=== PATIENT | female | born 1965 | race Caucasian/White ===

== ENCOUNTER 2024-10-03 08:08 | Outpatient (OUT) | payer BC, SELFPAY ==
--- NOTE | 2024-10-03 08:12 | MM_ITS ---
Patient Name: KEITH ROY MR#: [id number] : 1965 Exam Date: 10/03/2024 Ordering Doctor: Non-Staff Physician RADIOLOGY REPORT PROCEDURE: MM TOMOSYNTHESIS SCREENING BI COMPARISON: MM TOMOSYNTHESIS SCREENING BI, 06/09/2023. MM TOMOSYNTHESIS SCREENING BI, 06/15/2021. INDICATIONS: Screening Calculator Name NCI Breast Cancer Risk Assessment Tool 5 Year Breast Cancer Risk 2.60% Lifetime Breast Cancer Risk 12.80% Personal Breast Cancer No Personal Ovarian Cancer No Treatments None Family Cancers Mother with breast cancer at age 69. LOCATION: [facility] BREAST COMPOSITION: There are scattered areas of fibroglandular density. FINDINGS: RIGHT BREAST: No significant suspicious finding. LEFT BREAST: No significant suspicious finding. DIAGNOSTIC CATEGORY 1--NEGATIVE. NO CHANGE FROM COMPARISON ASSESSMENT. RECOMMENDATIONS: ROUTINE MAMMOGRAM AND CLINICAL EVALUATION IN 12 MONTHS. PLEASE NOTE: A NORMAL MAMMOGRAM DOES NOT EXCLUDE THE POSSIBILITY OF BREAST CANCER. A CLINICALLY SUSPICIOUS PALPABLE LUMP SHOULD BE BIOPSIED. Dictated by: Abelardo Martinez MD on 10/03/2024 at 15:48 Approved by: Abelardo Martinez MD on 10/03/2024 at 15:52
== END 2024-10-03 08:09 | disposition home or self-care (01) ==
LOC: MAMMO 08:08
PROVIDERS: PCP Nurse Practitioner
DX: Z12.31 Encounter for screening mammogram for malignant neoplasm of breast (principal); Z80.3 Family history of malignant neoplasm of breast
CPT/HCPCS: 77063; 77067

== ENCOUNTER 2025-03-04 11:10 | Outpatient (OUT) | payer BC, SELFPAY ==
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
--- NOTE | 2025-03-04 | XR_ITS ---
[facility] [place] [id number] Patient Name: KEITH ROY MRN: [id number] date: 1965 Sex: F Assigned Patient Location: [facility] Current Patient Location: [facility] Accession/Order Number: [id number] Exam Date: 03/04/2025 11:23 Report Date: 03/04/2025 11:31 At the request of: CHAPINCITO GOLDMAN DO Procedure: XR hand LT min 3V LEFT HAND - 3 views CLINICAL DATA: Pain at the fourth finger for the past 2 months after opening a box and hearing a pop. COMPARISON: None AP, lateral and oblique views were obtained. There is no evidence of fracture or dislocation. There are no significant soft tissue abnormalities. XR/XR hand LT min 3V IMPRESSION: NO ACUTE BONY INJURY. Impression dictated by: Cyndy Liu M.D. 03/04/2025 11:31 AM Dictation Location: [place] [address] Electronically authenticated by: [id number] Y Date: 03/04/2025 11:31
--- OUTSIDE RECORDS SUMMARY | 2025-03-04 11:12 | XMS_ITS | Clinical Summary ---
Author Organization [facility] Address [id number] [address] [place] [address] Care Team Providers Care Welfare Aide Name Role Phone No Pcp, No Pcp Primary Care Provider Unavailabl e Allergies Active Allergy Reactions Criticality Noted Date Comments Sulfa (Sulfonamide Antibiotics) 05/09 Sulfasalazine 03/24/2017 Medications * This document contains information received from the source organization and may not represent a complete record from that organization. losartan (COZAAR) 25 mg tablet Take 25 mg by mouth daily. Active estradiol (ESTRACE) 0.5 mg tablet Take 0.5 mg by mouth daily. Active omeprazole (PriLOSEC) 40 mg capsule Take 40 mg by mouth as needed. Active triamcinolone (KENALOG) 0.1 % paste Apply 1 application to teeth 2 (two) times a day. Active hydroCHLOROthia zide (HYDRODIURIL) 12.5 mg tablet Take 12.5 mg by mouth daily. Active lamoTRIgine (LaMICtal) 25 mg tablet TAKE ONE AND ONE-HALF TABLETS DAILY 135 tablet 1 2 Active Active Problems Problem Noted Date Diagnosed Date Generalized anxiety disorder 08/15/2017 Major depressive disorder, recurrent episode, mo derate 08/15/2017 Posttraumatic stress disorder 08/15/2017 Social History Tobacco Use Types Packs/Day Years Used Date Smoking Tobacco: Never Assessed Childcare Answer Date Recorded Childcare Unknown 01/05/2019 Employment Answer Date Recorded Employment Unknown 01/05/2019 Purpose - Life Answer Date Recorded Purpose and direction in life Unknown Comments Unknown Sex and Gender Information Value Date Recorded Sex Assigned at Not on file Legal Sex Female 12:11 PM EDT Gender Identity Not on file Sexual Orientation Not on file Last Filed Vital Signs Vital Sign Reading Time Taken Comments Blood Pressure 122/88 07/08/2015 1:31 PM EST Pulse - - Temperature 37.1 C (98.8 F) 06/02/2016 1:41 PM EDT Respiratory Rate - - Oxygen Saturation - - Inhaled Oxygen Concentration - - Weight 66.1 kg (145 lb 12.8 oz) 06/02/2016 1:41 PM EDT Height 165.1 cm (5' 5 ) 06/02/2016 1:41 PM EDT Body Mass Index 24.26 06/02/2016 1:41 PM EDT Plan of Treatment Health Maintenance Due Date Last Done Comments Depression Screening 1976 Tobacco Screening 1976 Adult BMI Screening 1982 DTaP,Tdap and Td Vaccines (1 - Tdap) 1983 Zoster (Shingles) Vaccine (1 of 2) 2014 Pap Smear 08/30/2019 08/30/2016, 08/30/2016 Influenza Vaccine 04/08/2025 Medical Devices Not on file Procedures Procedure Name Priority Date/Time Associated Diagnosis Comments PAP SMEAR Routine 08/30/2016 3:23 PM EST from Last 3 Months or Most Recently Relevant to Health Maintenance Results * Pap Smear (08/30/2016 3:23 PM EST) 08/30/2016 3:23 PM EST 08/31/2016 3:23 PM EST Narrative COPATH - 09/04/2016 3:02 PM EST [facility] [address] [place] [address] Gynecologic Cytology Consultation Patient Name: CHERELLE TUTTLE : 1965 (Age: 51) Gender: F Taken: 08/30/2016 Reported: 09/04/2016 Physician(s): Ayse Camacho CNP [phone]) Copy To: Med. Rec. #: [id number] Acct: # [id number] Final Cytologic Interpretation Cervical-Endocervical ThinPrep: Satisfactory for evaluation. A transformation zone component was not noted. NEGATIVE FOR INTRAEPITHELIAL LESION OR MALIGNANCY. Comment: This specimen has been sent for HPV testing. The results are in a separate report. lrd/09/04/2016 Electronically Signed Out By ANTONELLA Espinoza, (ASCP) Date of Last Menstrual Period: (None Given) Other Clinical Conditions: Screening/Routine V72.31 Routine c69588 Source of Specimen Cervical-Endocervical ThinPrep Thin Prep Pap (SCALE MODEL MAKER) Fee Code(s): G0145 The Pap test is a screening test with an inherent, but low, probability of error. The Pap test is primarily effective for the diagnosis and prevention of squamous cell carcinoma. Regular screening is critical for prevention. ThinPrep liquid-based slides, which meet the Sheet Metal Foreman criteria for automated screening, have been screened by the [email or web address] Imaging System (as of 04/24/07) along with an additional manual rescreening by a darkroom technician and, if indicated, by a pathologist.Ayse Camacho CNP 08/31/2016 Guerline Camacho HOLISTIC PULSER-SUPERVISOR PROPELLANT CHARGE LOADING PATHOLOGY/CYTOLOGY ORDERABLES Final Result COPATH from Last 3 Months or Most Recently Relevant to Health Maintenance Insurance [employer] Care Teams Welfare Aide Relationship Specialty Start Date End Date No Pcp, [place] [address] PCP - General Family Medicine 01/29/19
--- OUTSIDE RECORDS SUMMARY | 2025-03-04 11:12 | XMS_ITS | Clinical Summary ---
Author Organization [facility] Address [address] [place] [address] Care Team Providers Care Senior Manager Quality Assurance Name Role Phone Unavailable Primary Care Provider Unavailabl e Social History Tobacco Use Types Packs/Day Years Used Date Smoking Tobacco: Never Assessed Comments Unknown Sex and Gender Information Value Date Recorded Sex Assigned at Not on file Legal Sex Female 7:40 PM EST Gender Identity Not on file Sexual Orientation Not on file Plan of Treatment Not on file Insurance [facility] PPO
--- OUTSIDE RECORDS SUMMARY | 2025-03-04 11:12 | XMS_ITS | Encounter Summary ---
Author Organization [facility] Address [address] [facility] [place] [address] Care Team Providers Care Boot Lace Cutter Machine Name Role Phone Manuela Gill NP Unavailable [phone] Praful Sands MD Primary Care Provider [phone] Encounter Details Date Type Department Care Team (Late Contact Info) Description 04/25/2024 Orders Only [facility] [address] [place] [address] Manuela Gill NP [address] [place] [address] Social History Tobacco Use Types Packs/Day Years Used Date Smoking Tobacco: Never Smokeless Tobacco: Never Alcohol Use Standard Drinks/Week Comments Never 0 (1 standard drink = 0.6 oz pur e alcohol) caffeine more than 4 cups Comments Unknown Sex and Gender Information Value Date Recorded Sex Assigned at Not on file Legal Sex Female 9:50 PM EDT Gender Identity Not on file Sexual Orientation Not on file documented as of this encounter Plan of Treatment Upcoming Encounters Date Type Department Care Team (Late st Contact Info) Description 03/18/2025 9:30 AM EDT Office Visit [facility] [address] [place] [address] Manuela Gill NP [address] [place] [phone] documented as of this encounter Procedures Procedure Name Priority Date/Time Associated Diagnosis Comments MISCELLANEOUS LAB TEST Routine 04/24/2024 11:04 AM EDT documented in this encounter Results * - Miscellaneous Test (04/24/2024 11:04 AM EDT) Manuela Gill NP LAB BLOOD ORDERABLES Final Resu lt documented in this encounter Visit Diagnoses Not on filedocumented in this encounter Care Teams Boot Lace Cutter Machine Relationship Specialty Start Date End Date Praful Sands MD [address] [place] [phone] PCP - General Family Medicine 01/12/24 Manuela Gill NP [address] [place] [phone] Nurse Practitioner Nurse Practitioner 03/09/23 documented as of this encounter
--- OUTSIDE RECORDS SUMMARY | 2025-03-04 11:12 | XMS_ITS | Clinical Summary ---
Author Organization [facility] Address [address], [address] [place] [address] Care Team Providers Care Healthcare Specialist Name Role Phone Unavailable Primary Care Provider Unavailabl e Allergies Active Allergy Reactions Criticality Noted Date Comments Sulfa Antibiotics 03/24/2017 Medications LamoTRIgine (LAMICTAL PO) Take 37.5 mg by mouth daily Active hydrochlorothiaz trisha (HYDRODIURIL) 25 MG tablet Take 25 mg by mouth daily Active losartan (COZAAR) 25 MG tablet Take 25 mg by mouth daily Active estradiol (ESTRACE) 1 MG tablet Take 1 mg by mouth daily Active Cholecalciferol (VITAMIN D PO) Take by mouth Active ibuprofen (ADVIL;MOTRIN) 800 MG tablet Take 1 tablet by mouth every 8 hours as needed for Pain 21 tablet 03/24/2017 Active Social History Tobacco Use Types Packs/Day Years Used Date Smoking Tobacco: Never Comments No Sex and Gender Information Value Date Recorded Sex Assigned at Not on file Legal Sex Female 1:51 PM EDT Gender Identity Not on file Sexual Orientation Not on file Last Filed Vital Signs Vital Sign Reading Time Taken Comments Blood Pressure 148/90 03/24/2017 2:16 PM EDT Pulse 116 03/24/2017 1:54 PM EDT Temperature 37.4 C (99.4 F) 03/24/2017 1:54 PM EDT Respiratory Rate 20 03/24/2017 1:54 PM EDT Oxygen Saturation 99% 03/24/2017 2:16 PM EDT Inhaled Oxygen Concentration - - Weight - - Height - - Body Mass Index - - Plan of Treatment Not on file Insurance [employer] on file
--- OUTSIDE RECORDS SUMMARY | 2025-03-04 11:13 | XMS_ITS | Encounter Summary ---
Author Organization [facility] Address [address] [facility] [place] [address] Care Team Providers Care Feed Handler Name Role Phone Manuela Gill NP Unavailable [phone] Praful Sands MD Primary Care Provider [phone] Encounter Details Date Type Department Care Team (Late Contact Info) Description 08/21/2024 Orders Only [facility] [address] [place] [phone] Renetta Nance DO [address] [facility] [place] [address] Social History Tobacco Use Types Packs/Day Years [...] 03/18/2025 9:30 AM EDT [facility] [address] [place] [phone] Manuela Gill NP [address] [place] [phone] documented as of this encounter Procedures Procedure Name Priority Date/Time Associated Diagnosis Comments COLONOSCOPY Routine 08/21/2024 1:11 PM EST documented in this encounter Results * Colonoscopy (08/21/2024 1:11 PM EST) Anatomical Region Laterality Modality Endoscopy us Renetta Nance DO ENDOSCOPY PROCEDURE ORDERABLES F inal Result documented in this encounter Visit Diagnoses Not on filedocumented in this encounter Care Teams Feed Handler Relationship Specialty Start Date End Date Praful Sands MD [address] [place] [phone] PCP - General Family Medicine 01/12/24 Manuela Gill NP [address] [place] [address] Nurse Practitioner Nurse Practitioner 03/09/23 documented as of this encounter
--- OUTSIDE RECORDS SUMMARY | 2025-03-04 11:13 | XMS_ITS | Clinical Summary ---
Author Organization [facility] Address [address] [facility] [place] [address] Care Team Providers Care Dive Master Name Role Phone Manuela Gill NP Unavailable [phone] Praful Sands MD Primary Care Provider [phone] Allergies Active Allergy Reactions Criticality Noted Date Comments Amlodipine 08/29/2023 Other Reaction(s): Unknown Escitalopram 08/29/2023 Other Reaction(s): Unknown Fluoxetine Unknown 01/12/2024 Fluticasone-Salmeterol 08/29/2023 Other Reaction(s): Unknown Food 06/08/2008 Gabapentin Dizziness 06/20/2024 Lisinopril 08/29/2023 Other Reaction(s): Unknown Naproxen 08/29/2023 Other Reaction(s): Unknown Paroxetine 08/29/2023 Other Reaction(s): Unknown Red Dye #40 (Allura Red) Other 01/12/2024 Sulfa Antibiotics GI intolerance 07/19/2007 Other Reaction(s): nausea, Onset Date: 2007-08-15;, Unknown Sulfasalazine 03/24/2017 Wound Dressing Adhesive Other 01/12/2024 Medications estradiol-norethi ndrone (ActivElla) 1-0.5 MG tablet Take 1 tablet by mouth Daily Active cholecalciferol (Vitamin D-3) 25 MCG (1000 UT) capsule Take 25 mcg by mouth Daily Active aspirin 81 MG EC tablet Take 81 mg by mouth Daily Active estradiol (Estrace) 0.1 MG/GM vaginal cream Apply a pea sized amount daily to external areas discussed 4 Active hydroCHLOROthiazi de (HYDRODiuril) 25 MG tabletIndications :Primary hypertension Take 1 tablet (25 mg) by mouth Daily 90 tablet 0503/11/20 25 Active lamoTRIgine (LaMICtal) 25 MG tabletIndications :Anxiety and depression Take 1 tablet (25 mg) by mouth in the morning and 1 tablet (25 mg) before bedtime. 180 tablet 03/11/20 25 Active omeprazole (PriLOSEC) [address] capsuleIndication s:Gastroesophagea l reflux disease without esophagitis Take 1 capsule (40 mg) by mouth in the morning. Take before meals. Do not crush or chew. 90 capsule 5 03/11/20 25 Active Active Problems Problem Noted Date Diagnosed Date Gastroesophageal reflux disease without esophagi tis 06/20/2024 Overview (08/21/2024): EGD on 08/21/24: normal Assessment & Plan (06/20/2024 10:56 AM EST): Recommendations: freq small meals, nothing to eat or drink at least 2 hours prior to bed, limit caffeine, alcohol, as well as spicy foods Meds to limit or avoid if possible: NSAIDS Elevate HOB if possible Will increase her dose of Omeprazole from 20mg daily to 40mg daily Fu in 6 weeks for recheck Will also refer to gastro Hiatal hernia 06/20/2024 Assessment & Plan (06/20/2024 10:57 AM EST): Refer to GI and increase PPI Colon cancer screening 06/20/2024 Assessment & Plan (06/20/2024 10:58 AM EST): Cannot get done until next year, we will include this on the order for GI, as it can be set up when pt determines it is best Chronic rhinitis 01/12/2024 Menopausal and female climacteric states 024 Assessment & Plan (06/20/2024 10:59 AM EST): Continue with Production Posting Clerk Raynaud's phenomenon without gangrene 01/12/2024 Sensorineural hearing loss, bilateral 01/12/2024 Tinnitus 01/12/2024 Arthralgia of left temporomandibular joint 01/11 Assessment & Plan (01/12/2024 2:25 PM EDT): Pt will self referr to [facility] Overweight (BMI 25.0-29.9) 01/12/2024 Anxiety and depression 07/12/2023 Assessment & Plan (06/20/2024 10:59 AM EST): No changes in meds Assessment & Plan (01/12/2024 2:24 PM EDT): No changes in meds Recommend Abelardo Marquez counselor Also to help with her household personal assistant, stop by local gym to see if they can help find her one Primary hypertension 07/12/2023 Assessment & Plan (06/20/2024 10:55 AM EST): No dose changes Will continue to monitor UTD on her labs as well Refills provided Assessment & Plan (01/12/2024 2:24 PM EDT): Stable Check labs Major depressive disorder, recurrent episode, mo derate 08/15/2017 Encounters Date Type Department Care Team Description 12/11/2024 Refill [facility] [address] [place] [address] Manuela Gill NP Primary hypertension ; Anxiety and depression ; Gastroesophageal reflux disease without esophagitis 12/10/2024 Telephone [facility] [address] [place] [address] Manuela Gill NP from Last 3 Months Family History Medical History Relation Name Comments Stroke Mother Relation Name Status Comments Father Alive Mother Social History Tobacco Use Types Packs/Day Years Used Date Smoking Tobacco: Never Smokeless Tobacco: Never Tobacco Cessation:Counseling Given: Not Answered Alcohol Use Standard Drinks/Week Comments Never 0 [...] Sign Reading Time Taken Comments Blood Pressure 138/88 06/20/2024 9:00 AM EST Pulse 102 06/20/2024 9:00 AM EST Temperature 37.1 C (98.7 F) 06/20/2024 9:00 AM EST Respiratory Rate 18 06/20/2024 9:00 AM EST Oxygen Saturation 100% 06/20/2024 9:00 AM EST Inhaled Oxygen Concentration - - Weight 72.7 kg (160 lb 3.2 oz) 06/20/2024 9:00 A M EST Height 165.1 cm (5' 5 ) 06/20/2024 9:00 AM EST Body Mass Index 26.66 06/20/2024 9:00 AM EST Plan of Treatment Upcoming Encounters Date Type Department Care Team (Late st Contact Info) Description 03/18/2025 9:30 AM EDT Office Visit [facility] [address] [place] [address] Manuela Gill, FATIMAH [address] [place] [address] Health Maintenance Due Date Last Done Comments CT Colonography 1965 FIT-DNA 1965 FIT 1965 FOBT 1965 Sigmoidoscopy 1965 HPV/Cotest 1994 Influenza Vaccine (#1) 2025 Mammogram 10/03/2025 10/03/2024, 10/03/2024 Cervical Cancer Screening 05/21/2027 Pap Smear 05/21/2027 05/21/2024 Colonoscopy 08/21/2029 08/21/2024 Colorectal Cancer Screening 08/21/2029 Procedures Procedure Name Priority Date/Time Associated Diagnosis Comments BI MAMMOGRAM SCREENING TOMOSYNTHESIS BILATERAL Routine 10/03/2024 4:04 PM EST COLONOSCOPY Routine 08/21/2024 1:11 PM EST from Last 3 Months or Most Recently Relevant to Health Maintenance Results * Bilateral screening mammogram with tomosynthesis (10/03/2024 4:04 PM EST) Anatomical Region Laterality Modality Breast Bilateral Mammography us Manuela Gill NP IMG BI PROCEDURES Final Result * Colonoscopy (08/21/2024 1:11 PM EST) Anatomical Region Laterality Modality Endoscopy Renetta Lee Ann DO ENDOSCOPY PROCEDURE ORDERABLES F inal Result from Last 3 Months or Most Recently Relevant to Health Maintenance Insurance [employer] Care Teams Dive Master Relationship Specialty Start Date End Date Praful Sands MD [address] [place] [phone] PCP - General Family Medicine 01/12/24 Manuela Gill NP [address] [place] [phone] Nurse Practitioner Nurse Practitioner 03/09/23
--- OUTSIDE RECORDS SUMMARY | 2025-03-04 11:13 | XMS_ITS | Encounter Summary ---
Author Organization [facility] Address [address] [place] [address] Care Team Providers Care Recreation Establishment Manager Name Role Phone Manuela Gill NP Unavailable [phone] Praful Sands MD Primary Care Provider [phone] Encounter Details Date Type Department Care Team (Late Contact Info) Description 10/03/2024 Orders Only [facility] [address] [place] [address] Manuela Gill NP [address] [place] [address] Social History Tobacco Use Types Packs/Day Years [...] 03/18/2025 9:30 AM EDT Office Visit [facility] [address] [place] [address] Manuela Gill NP [address] [place] [phone] documented as of this encounter Procedures Procedure Name Priority Date/Time Associated Diagnosis Comments BI MAMMOGRAM SCREENING TOMOSYNTHESIS BILATERAL Routine 10/03/2024 4:04 PM EST documented in this encounter Results * Bilateral screening mammogram with tomosynthesis (10/03/2024 4:04 PM EST) Anatomical Region Laterality Modality Breast Bilateral Mammography Manuela Gill NP IMG BI PROCEDURES Final Result documented in this encounter Visit Diagnoses Not on filedocumented in this encounter Care Teams Recreation Establishment Manager Relationship Specialty Start Date End Date Praful Sands MD [address] [place] [address] PCP - General Family Medicine 01/12/24 Manuela Gill NP [address] [place] [address] Nurse Practitioner Nurse Practitioner 03/09/23 documented as of this encounter
== END 2025-03-04 11:11 | disposition home or self-care (01) ==
LOC: RAD 11:11
PROVIDERS: PCP Nurse Practitioner; Visit Provider Orthopaedic Surgery Orthopaedic Trauma
DX: M79.642 Pain in left hand (principal)
CPT/HCPCS: 73130

== ENCOUNTER 2025-06-29 09:13 | Outpatient (OUT) | payer BC, SELFPAY ==
--- OUTSIDE RECORDS SUMMARY | 2024-05-24 19:40 | XMS_ITS | Continuity of Care Document ---
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 Mammogram Screening. Due on due Goal Mammogram. Due on due Goal Glucose. Due on due Goal Hepatitis C screening. Due o n due Goal Sigmoidoscopy. Due on due Goal Zoster vaccine (). Due on due Goal Zoster vaccine. Due on due Goal CT-Colonography. Due on due Goal SCREENINGMAMMOGRAPHYDIGITAL. Due on due Goal Depression screening. Due on due Goal TD Vaccine. Due on due Goal creatinine. Due on due Goal WASTEWATER TREATMENT SUPERVISOR/Breast exam. Due on due Goal Influenza vaccine. Due on Oc due Goal H&P. Due on due Goal Pap/HPV testing. Due on due Goal Pap liquid based for cytolog y. Due on due Goal FIT. Due on due Goal Breast exam. Due on due Goal BMP. Due on due Goal HPV. Due on due Goal Colonoscopy. Due on due Goal Mammogram. Due on due Goal Colonoscopy. Due on due Goal FIT-DNA. Due on due Goal Glucose. Due on due Goal TD Vaccine. Due on due Goal SCREENINGMAMMOGRAPHYDIGITAL. Due on due Goal Pap liquid based for cytolog y. Due on due Goal URINALYSIS NONAUTO W/O SCOPE . Due on due Goal Pap/HPV testing. Due on due Goal HPV. Due on due Goal Unhealthy drug use screening . Due on due Goal Zoster vaccine (). Due on due Goal Sigmoidoscopy. Due on due Goal Digital Mammogram Screening. Due on due Goal H&P. Due on due Goal Cytology report of Cervical and vaginal smear or scraping Cyto stain. Due on due Goal WASTEWATER TREATMENT SUPERVISOR/Breast exam. Due on due Goal Hepatitis C screening. Due o n due Goal FIT. Due on due Goal Breast exam. Due on due Goal FOBT. Due on due Goal Zoster vaccine. 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 Due on due Goal IFOB. Due on due Goal CT-Colonography. Due on due Goal Influenza vaccine. Due on Oc due Goal Depression screening. Due on due Goal BMP. Due on due Goal creatinine. Due on due Goal Influenza vaccine. Due on Oc due Goal WASTEWATER TREATMENT SUPERVISOR/Breast exam. Due on due Goal Digital Mammogram Screening. Due on due Goal Depression screening. 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 Due on due Goal Mammogram. Due on due Goal Colonoscopy. Due on due Goal Pap liquid based for cytolog y. Due on due Goal FOBT. Due on due Goal CT-Colonography. Due on due Goal FIT-DNA. Due on due Goal Breast exam. Due on due Goal IFOB. Due on due Goal Glucose. Due on due Goal Dexa Scan. Due on due Goal H&P. Due on due Goal TD Vaccine. Due on due Goal Pap/HPV testing. Due on due Goal creatinine. Due on due Goal BMP. Due on due Goal Lipid panel. Due on due Goal HPV. Due on due Goal FIT. Due on due Goal Cytology report of Cervical and vaginal smear or scraping Cyto stain. Due on due Goal URINALYSIS NONAUTO W/O SCOPE . Due on due Goal SCREENINGMAMMOGRAPHYDIGITAL. Due on due Goal Zoster vaccine (1st). Due on due Goal Dexa Scan. Due on due Goal URINALYSIS NONAUTO W/O SCOPE . Due on due Goal creatinine. Due on due Goal BMP. Due on due Goal Lipid panel. Due on due Goal H&P. Due on due Goal Cytology report of Cervical and vaginal smear or scraping Cyto stain. Due on due Goal SCREENINGMAMMOGRAPHYDIGITAL. Due on due Goal FIT. Due on due Goal Pap liquid based for cytolog y. Due on due Goal FOBT. Due on due Goal HPV. Due on due Goal Glucose. Due on due Goal Depression screening. Due on due Goal Pap/HPV testing. 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 Due on due Goal Influenza vaccine. Due on due Goal Colonoscopy. Due on due Goal Breast exam. Due on due Goal TD Vaccine. Due on due Goal CT-Colonography. Due on due Goal WASTEWATER TREATMENT SUPERVISOR/Breast exam. Due on due Goal IFOB. Due on due Goal FIT-DNA. Due on due Goal Mammogram. Due on 3 due Goal Digital Mammogram Screening. Due on due Goal Zoster vaccine (). Due on due Goal Digital Mammogram Screening. Due on due Goal Breast exam. 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 Due on due Goal Depression screening. Due on due Goal Pap liquid based for cytolog y. Due on due Goal FIT-DNA. Due on due Goal FOBT. Due on due Goal CT-Colonography. Due on due Goal Pap/HPV testing. Due on due Goal Cytology report of Cervical and vaginal smear or scraping Cyto stain. Due on due Goal Zoster vaccine (). Due on due Goal TD Vaccine. Due on due Goal Glucose. Due on due Goal URINALYSIS NONAUTO W/O SCOPE . Due on due Goal WASTEWATER TREATMENT SUPERVISOR/Breast exam. Due on due Goal BMP. Due on due Goal creatinine. Due on 20 due Goal Lipid panel. Due on 020 due Goal Mammogram. Due on 3 due Goal Colonoscopy. Due on 021 due Goal Influenza vaccine. Due on due Goal Dexa Scan. Due on due Goal H&P. Due on due Goal HPV. Due on due Goal SCREENINGMAMMOGRAPHYDIGITAL. Due on due Goal IFOB. Due on due Goal FIT. Due on due Goal FIT-DNA. Due on due Goal IFOB. Due on due Goal H&P. Due on due Goal Depression screening. Due on due Goal Influenza vaccine. Due on Oc due Goal Pap liquid based for cytolog y. Due on due Goal FIT. 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 Due on due Goal Dexa Scan. Due on 0 due Goal Digital Mammogram Screening. Due on due Goal URINALYSIS NONAUTO W/O SCOPE . Due on due Goal creatinine. Due on due Goal BMP. Due on due Goal Lipid panel. Due on due Goal Cytology report of Cervical and vaginal smear or scraping Cyto stain. Due on due Goal TD Vaccine. Due on due Goal Pap/HPV testing. Due on due Goal Zoster vaccine (1st). Due on due Goal WASTEWATER TREATMENT SUPERVISOR/Breast exam. Due on due Goal FOBT. Due on due Goal HPV. Due on due Goal Glucose. Due on due Goal Mammogram. Due on 3 due Goal Breast exam. Due on due Goal CT-Colonography. Due on due Goal Colonoscopy. Due on due Goal SCREENINGMAMMOGRAPHYDIGITAL. 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 Due on due Goal Digital Mammogram Screening. Due on due Goal H&P. Due on due Goal SCREENINGMAMMOGRAPHYDIGITAL. Due on due Goal HPV. Due on due Goal FIT. Due on due Goal WASTEWATER TREATMENT SUPERVISOR/Breast exam. Due on due Goal FIT-DNA. Due on due Goal CT-Colonography. Due on due Goal creatinine. Due on due Goal BMP. Due on due Goal IFOB. Due on due Goal Colonoscopy. Due on due Goal Dexa Scan. Due on 0 due Goal Pap liquid based for cytolog y. Due on due Goal Zoster vaccine (). Due on due Goal Cytology report of Cervical and vaginal smear or scraping Cyto stain. Due on due Goal TD Vaccine. Due on due Goal Pap/HPV testing. Due on due Goal FOBT. Due on due Goal Lipid panel. Due on due Goal Depression screening. Due on due Goal Mammogram. Due on 3 due Goal Influenza vaccine. Due on due Goal Glucose. Due on due Goal Breast exam. Due on due Goal URINALYSIS NONAUTO W/O SCOPE . Due on due Goal Influenza vaccine. Due on due Goal WASTEWATER TREATMENT SUPERVISOR/Breast exam. Due on due Goal Dexa Scan. Due on 0 due Goal Glucose. Due on due Goal Pap/HPV testing. Due on due Goal SCREENINGMAMMOGRAPHYDIGITAL. Due on due Goal FOBT. Due on due Goal H&P. Due on due Goal Colonoscopy. Due on due Goal HPV. Due on due Goal creatinine. Due on 20 due Goal BMP. Due on due Goal Lipid panel. Due on 020 due Goal Mammogram. Due on 3 due Goal URINALYSIS NONAUTO W/O SCOPE . Due on due Goal TD Vaccine. Due on 20 due Goal Breast exam. Due on due Goal Digital Mammogram Screening. 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 Due on due Goal Depression screening. Due on due Goal Pap liquid based for cytolog y. Due on due Goal Zoster vaccine (). Due on due Goal IFOB. Due on due Goal Cytology report of Cervical and vaginal smear or scraping Cyto stain. Due on due Goal CT-Colonography. Due on due Goal FIT. Due on due Goal FIT-DNA. Due on due Goal Zoster vaccine. Due on due Goal Depression screening. Due on due Goal TD Vaccine. Due on 19 due Goal URINALYSIS NONAUTO W/O SCOPE . Due on due Goal Colonoscopy. Due on 019 due Goal WASTEWATER TREATMENT SUPERVISOR exam. Due on due Goal Digital Mammogram Screening. Due on due Goal H&P. Due on due Goal Glucose. Due on due Goal FOBT. Due on due Goal Cytology report of Cervical and vaginal smear or scraping Cyto stain. Due on due Goal Influenza vaccine. Due on due Goal WASTEWATER TREATMENT SUPERVISOR/Breast exam. Due on due Goal SCREENINGMAMMOGRAPHYDIGITAL. Due on due Goal Pap liquid based for cytolog y. Due on due Goal Mammogram. Due on 3 due Goal Pap/HPV testing. Due on due Goal IFOB. Due on due Goal Breast exam. Due on 019 due Goal Zoster vaccine (). Due on due Goal creatinine. Due on 20 due Goal Lipid panel. Due on 020 due Goal Pap liquid based for cytolog y. Due on due Goal Influenza vaccine. Due on due Goal TD Vaccine. Due on 19 due Goal Zoster vaccine. 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 Due on due Goal Digital Mammogram Screening. Due on due Goal creatinine. Due on 16 due Goal Eye exam. Due on due Goal Echocardiogram. Due on due Goal Diabetes screening. Due on due Goal URINALYSIS NONAUTO W/O SCOPE . Due on due Goal Glucose. Due on due Goal Depression screening. Due on due Goal Cytology report of Cervical and vaginal smear or scraping Cyto stain. Due on due Goal IFOB. Due on due Goal FOBT. Due on due Goal Pap/HPV testing. Due on due Goal Dexa Scan. Due on 6 due Goal SCREENINGMAMMOGRAPHYDIGITAL. Due on due Goal Colonoscopy. Due on due Goal H&P. Due on due Goal Breast exam. Due on due Goal Mammogram. Due on 1 due Goal WASTEWATER TREATMENT SUPERVISOR/Breast exam. Due on due Goal H&P. Due on due Goal Digital Mammogram Screening. Due on due Goal SCREENINGMAMMOGRAPHYDIGITAL. Due on due Goal Colonoscopy. Due on due Goal Mammogram. Due on 1 due Goal Echocardiogram. Due on due Goal Diabetes screening. Due on due Goal WASTEWATER TREATMENT SUPERVISOR/Breast exam. Due on due Goal URINALYSIS NONAUTO W/O SCOPE . Due on due Goal Depression screening. Due on due Goal Pap liquid based for cytolog y. Due on due Goal Cytology report of Cervical and vaginal smear or scraping Cyto stain. Due on due Goal Dexa Scan. Due on 6 due Goal creatinine. Due on 16 due Goal Eye exam. Due on due Goal IFOB. Due on due Goal Pap/HPV testing. Due on due Goal FOBT. Due on due Goal Glucose. Due on due Goal Influenza vaccine. Due on due Goal Zoster vaccine. Due on due Goal TD Vaccine. Due on 19 due Goal WASTEWATER TREATMENT SUPERVISOR exam. Due on due Goal Breast exam. Due on 019 due Goal Zoster vaccine. Due on due Goal Influenza vaccine. Due on due Goal Glucose. Due on due Goal FOBT. Due on due Goal Pap/HPV testing. Due on due Goal IFOB. Due on due Goal Cytology report of Cervical and vaginal smear or scraping Cyto stain. Due on due Goal Pap liquid based for cytolog y. Due on due Goal URINALYSIS NONAUTO W/O SCOPE . Due on due Goal Depression screening. Due on due Goal Diabetes screening. Due on due Goal Dexa Scan. Due on 6 due Goal Mammogram. Due on 3 due Goal Colonoscopy. Due on 018 due Goal SCREENINGMAMMOGRAPHYDIGITAL. Due on due Goal Digital Mammogram Screening. Due on due Goal H&P. Due on due Goal WASTEWATER TREATMENT SUPERVISOR/Breast exam. Due on due Goal Breast exam. Due on 018 due Goal WASTEWATER TREATMENT SUPERVISOR exam. Due on due Goal TD Vaccine. Due on 18 due Goal Echocardiogram. Due on due Goal Eye exam. Due on due Goal creatinine. Due on 16 due Goal Pap liquid based for cytolog y. Due on due Goal URINALYSIS NONAUTO W/O SCOPE . Due on due Goal Colonoscopy. Due on due Goal Breast exam. Due on 017 due Goal Glucose. Due on due Goal TD Vaccine. Due on 17 due Goal Zoster vaccine. Due on due Goal FOBT. Due on due Goal IFOB. Due on due Goal Influenza vaccine. Due on due Goal H&P. Due on due Goal Pap/HPV testing. Due on due Goal Mammogram. Due on 2 due Goal Depression screening. 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 Due on due Goal WASTEWATER TREATMENT SUPERVISOR/Breast exam. Due on due Goal Digital Mammogram Screening. Due on due Goal SCREENINGMAMMOGRAPHYDIGITAL. Due on due Goal Echocardiogram. Due on due Goal Electrolyte panel. Due on due Goal creatinine. Due on 16 due Goal Eye exam. Due on due Goal Diabetes screening. Due on due Goal Cytology report of Cervical and vaginal smear or scraping Cyto stain. 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 Due on due Goal TD Vaccine. Due on 17 due Goal WASTEWATER TREATMENT SUPERVISOR/Breast exam. Due on due Goal FOBT. Due on due Goal Glucose. Due on due Goal Depression screening. Due on due Goal Breast exam. Due on due Goal Pap/HPV testing. Due on due Goal Colonoscopy. Due on due Goal H&P. Due on due Goal URINALYSIS NONAUTO W/O SCOPE . Due on due Goal Pap liquid based for cytolog y. Due on due Goal SCREENINGMAMMOGRAPHYDIGITAL. Due on due Goal Eye exam. Due on due Goal creatinine. Due on 16 due Goal Electrolyte panel. Due on due Goal IFOB. Due on due Goal Influenza vaccine. Due on due Goal Digital Mammogram Screening. Due on due Goal Mammogram. Due on 2 due Goal Zoster vaccine. Due on due Goal Echocardiogram. Due on due Goal Diabetes screening. Due on due Goal Pap liquid based for cytolog y. Due on due Goal TD Vaccine. Due on 16 due Goal H&P. Due on due Goal WASTEWATER TREATMENT SUPERVISOR/Breast exam. Due on due Goal IFOB. Due on due Goal Depression screening. Due on due Goal URINALYSIS NONAUTO W/O SCOPE . Due on due Goal Breast exam. Due on 016 due Goal FOBT. 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 Due on due Goal Influenza vaccine. Due on due Goal OARRS. Due on du e Goal Dexa Scan. Due on 6 due Goal Zoster vaccine. Due on due Goal Eye exam. Due on due Goal Echocardiogram. Due on due Goal Colonoscopy. Due on 016 due Goal Glucose. Due on due Goal Mammogram. Due on 2 due Goal creatinine. Due on 16 due Goal Electrolyte panel. Due on due Goal Diabetes screening. Due on A due Goal WASTEWATER TREATMENT SUPERVISOR/Breast exam. Due on due Goal IFOB. 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 Due on due Goal OARRS. Due on du e Goal H&P. Due on due Goal URINALYSIS NONAUTO W/O SCOPE . Due on due Goal Dexa Scan. Due on 5 due Goal Breast exam. Due on 015 due Goal Depression screening. Due on due Goal Mammogram. Due on 2 due Goal Influenza vaccine. Due on Oc due Goal TD Vaccine. Due on 15 due Goal Pap liquid based for cytolog y. Due on due Goal FOBT. Due on due Goal Echocardiogram. Due on due Goal Eye exam. Due on due Goal Electrolyte panel. Due on due Goal Diabetes screening. Due on due Goal Zoster vaccine. Due on due Goal Colonoscopy. Due on due Goal Dexa Scan. Due on 5 due Goal URINALYSIS NONAUTO W/O SCOPE . Due on due Goal Depression screening. Due on due Goal OARRS. Due on du e Goal Pap liquid based for cytolog y. Due on due Goal Influenza vaccine. Due on due Goal Breast exam. Due on due Goal TD Vaccine. Due on 15 due Goal H&P. Due on due Goal Tdap. Due on due Goal PAP. Due on due Goal WASTEWATER TREATMENT SUPERVISOR/Breast exam. Due on due Goal Colonoscopy. Due on 015 due Goal Zoster vaccine. Due on due Goal IFOB. 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 Due on due Goal Eye exam. Due on due Goal Mammogram. Due on 2 due Goal Electrolyte panel. Due on due Goal Echocardiogram. Due on due Goal Diabetes screening. 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 Due on due Goal TD Vaccine. Due on 14 due Goal Breast exam. Due on 014 due Goal Mammogram. Due on 2 due Goal PAP. Due on due Goal H&P. Due on due Goal Eye exam. Due on due Goal Diabetes screening. Due on due Goal Colonoscopy. Due on 014 due Goal Depression screening. Due on due Goal DEXA Scan. Due on 4 due Goal Dexa Scan. Due on 4 due Goal WASTEWATER TREATMENT SUPERVISOR/Breast exam. Due on due Goal IFOB. Due on due Goal Influenza vaccine. Due on due Goal OARRS. Due on du e Goal Pap liquid based for cytolog y. Due on due Goal Tdap. Due on due Goal Zoster vaccine. Due on due Goal Electrolyte panel. Due on due Goal Urinalysis due Goal Echocardiogram. Due on due Goal TD Vaccine. Due on 14 due Goal WASTEWATER TREATMENT SUPERVISOR exam. Due on due Goal H&P. Due on due Goal Breast exam. Due on 014 due Goal Urinalysis . Due on 014 due Goal Electrolyte panel. Due on due Goal creatinine. Due on 14 due Goal Echocardiogram. Due on due Goal PAP. Due on due Goal H&P. Due on due Goal Breast exam. Due on 014 due Goal PAP. 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 Due on due Goal TD Vaccine. Due on 14 due Goal ECG due Goal Echocardiogram. Due on due Goal creatinine. Due on 14 due Goal Electrolyte panel. Due on due Goal Urinalysis . Due on 014 due Goal TD Vaccine. Due on 14 due Goal Urinalysis . Due on 013 due Goal Breast exam. Due on 011 due Goal PAP. Due on due Goal H&P. Due on due Goal Echocardiogram. 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 Due on due Goal ECG. Due on due Referral Ordered: Niels Mendez -Otolaryngology (related to Deviated septum) sjlfkozKks-[id number] Referred To: Niels Mendez Ordered: Referrals: Otolaryngology. Niels Mendez. Evaluate and treat uakqynzXjf-[id number] Ordered: EKG cyygrxfNpk-01-2858Ydnqyojz Ordered: Dr. Jaleel Lafleur (related to Pelvic mass) osslnxpFpf-05-6353Juujcrij Ordered: US EXAM, PELVIC, LIMITED rilmvimFno-[id number] Referred To: Dr. Jaleel Lafleur Ordered: Referrals: Gynecology. Dr. Jaleel Lafleur. Evaluate and treat gwxxjweZnr-94-1339Ygfrpw Order: Radiology OrderMA SCREENINGMAMMOGRAPHYDIGITAL ([id number]), Ordered on: Yin-65-7308IdvlnenTbc-28-2020Future Order: Lab OrderCMP ([id number]), Ordered on: Kwr-52-7936JtrymsvTnn-20-2017Future Order: Lab OrderTSH ([id number]), Ordered on: Uax-91-7653TstegkaFbc-20-2017Future Order: Lab Order Vitamin B12 Level ([id number]), Ordered on: Rzv-43-0497WiuufzhHtx-17-2016Future Order: Lab OrderCBC w/ Auto Diff ([id number]), Ordered on: Eok-93-1044Bohvxdc Wbq-90-2123Mxxwdy Order: Lab OrderCMP ([id number]), Ordered on: Cyd-45-2778Honupao Ubw-27-3814Enhyjs Order: Lab OrderLipid Profile ([id number]), Ordered on: Gzr-48-3101SjncseaTdy-17-2016Future Order: Lab OrderMicroalbumin Urine Lvl ([id number]), Ordered on: Zli-72-8429UtpwpzvSgt-03-2014Future Order: Radiology OrderHX MRI Pelvis ([id number]), Ordered on: Ntz-37-6276LcpxtmlEsw-03-2014Future Order: Lab OrderUrine Culture ([id number]), Ordered on: Nqf-37-1367Vcimtvh Ehu-71-2467Jockyj Order: Lab OrderAffirm I (BV, Trich, Stephanie) ([id number]), Collected on: Vfy-[id number]-03-2014Future Order: Lab OrderChlamydia/GC rRNA ([id number]), Collected on: Uhk-25-8422WugirxwBfc-03-2014Future Order: Radiology OrderUS Transvaginal Non-OB w/ or w/o Doppler ([id number]), Ordered on: Zco-47-2189Muhnelx History Of Present Illness Encounter Date Complaint History Of Radha cooper Illness Annual 59yo Presmaxwell ts for annual. Last annual 2022. Had difficulty checking into the office today and feeling frustrated. Thanked her for making me aware.Care interrupted at times as she has been consumed with caring for her father who lives around [facility]. Has a job working from home which is more conducive. 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 Cervical smear, as part of routine gynecological examination - Z01.419 (Primary) 2. Screening for HPV (human papillomavirus) - Z11.51 3. Menopause - Z78.0 4. Hot flashes - R23.2 5. Female pelvic pain - R10.2, 2022 less of an issue now with menopause. Seems to be fascial pain, back pain and left medial knee. 6. Pruritic condition - L29.9 Plan:Treatment:1. Cervical smear, as part of routine gynecological examination LAB: Pap,HPVhr r 16/18,45 (LC) (Collect Allergies Symptoms are unc hanged. Symptoms are improved with Pseudafed Allergy with fair relief. The patient is also experiencing headache, nasal drainage, post nasal drainage and sinus pain. Hypertension The HTN started in 2007. It is currently stable. Risk factors include family history HTN, gout or CAD and high salt intake. Associated symptoms include headache. Pertinent negatives include chest pain, dyspnea, irregular heartbeat/palpitations and visual disturbances. Additional information: 03/10/21- CMP done- K-3.2, total bili 1.6. Pt reports taking bp at home, wnl. Hypertension (comments) Comments : Pt is checking BP at home 120/80s on average, bottom number is almost always 82. Pt is taking Losartan and HCTZ daily. Pt is not taking potassium supplement. Pt eats bananas every other day. Pt is refusing to lower HCTZ does, states she won't be able to move fingers if med gets changes. Allergies (comments) Comments: P t used to see bulk delivery driver, has not for years. Pt states insurance changing in August so does not want to establish with specialist to have them change again after first of the years. Will let office know if wanting to see specialist in the future. Sinus symptoms (acute) Onset: 2 Months. Pertinent/initial symptoms include facial pressure and sinus pain. Associated symptoms include otalgia, postnasal drainage, sinus pressure, left side pressure and. Additional information: Sores in left side of nose. Has been taking Advil sinus and NyQuil at night. Saline spray, Vicks pens . Used Claritin last week, this opens up the airway but still has drainage. Sinus symptoms (acute) (comments ) Comments: Pt feels like symptoms started with pollen worsened a couple months ago. Sinus pressure worse on left side. Pt has been through 12 boxes of Kleenex, sometimes thick drainage other times thin and just runs. Claritin has helped that. Took Claritin D once and decongestant kept her up at night. Left side of face is sore, has had scabs in nose, using vasoline. No fevers. sore throat Onset: 5 Days. T he problem has worsened. Symptoms are not associated with smoker. Associated symptoms include fatigue, headache, pharyngitis and postnasal drainage. Pertinent negatives include cough or fever. Additional information: She has been using dental paste, azlasteline, and antiseptic spray. Advil for headache. rash The client prese nts for rash. This episode began 10 days ago. The patient describes the affected area(s) as itchy. Associated symptoms include painful rash and pruritus. Pertinent negatives include bleeding. Additional information: possible poison rishi. some on both ankles, both groins, left elbow. pain when urinating because of location, difficulty sleeping due to this. had this 5 years ago and it got infected. ankles is blistering. (comments) Normally control led. Wearing mask makes her congested. Hypertension The HTN started in 2007. Risk factors include family history HTN, gout or CAD and high salt intake. Pertinent negatives include chest pain, dyspnea, fatigue, headache, nausea and vomiting. Additional information: Pt taking medication as directed. Checks BP at home. Hypertension (comments) Pt state s she has pain in her face when she talks with the mask on due to having pain in a nerve in her face. Pt is seeing ENT for this. Pt does check BP at home, 118/76 was this am BP. Denies headaches, vision changes or swelling of extremities. Limits salt in diet. (comments) Feels like medic ation is working well for. Pt is not wanting ti answer questions of food triggers. States should be on record. hypertension (comments) Pt has b een taking losartan 25mg daily and BP has been stable. Pt had been taking half dose of losartan 50mg, states had lots from mail in, denies needing refills.At closing of visit pt is asking when menopausal brain fog is going to get better. States she will stare at computer screen and wonder what she is supposed to be doing at work at times. Will forget things. Pt states mother had stroke induced dementia. Discussed referral to Dr. Meyer, NeuroPsych at [facility] for early dementia screening. Pt states she was told by a member of alzheimer's association to not do that type of testing because you will be labeled and will affect future treatment. Pt will monitor symptoms and if worsening will consider referral. Will let office know if wanting referral. GERD (comments) Chicken and Irma to are her known triggers. allergies (comments) Pt is using astelin nasal spray daily. hypertension The HTN started in 2007. Risk factors include family history HTN, gout or CAD and high salt intake. Additional information: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
--- OUTSIDE RECORDS SUMMARY | 2025-06-29 09:18 | XMS_ITS | CCD ---
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 welsh-chacon, focally erythematous, friable, 0.2 and 0.5 cm in greatest dimension polypoid fragments. The specimen is entirely submitted in a single cassette. (1, ns, S2 C) [place] CPT Codes [id number] Specimen: Received: 08/21/24 Status: SUDHIR Hess Num: [id number] Spec Type: Surgical Subm Dr: Renetta Nance DO Tissues: A Small Intestine - Biopsy/Polyp (SM BOWEL BX R/O CELIAC) B GASTRIC FOR HP (GASTRIC BX R/O H PYLORI) C Colon Biopsy (TRANSVERSE POLYP) Procedures: HE/6, Gross/Micro L4/3, H PYLORI Patient: Cherelle Tuttle [id number] (Continued) Signed (signature on file) Azael Velasquez MD 08/22/[address] [place] [address] Physician GroupCBC AUTO DIFFon [id number] # 0.1 103/ulNormal0.0-0.1[facility] - DublinComment on above:Performed By: #### CBC #### [facility] [address] [place] [address] Dr. Rob AdairBasophils/100 WBC (Bld)1.4 %Normal0.2-2.0[facility] Comment on above:Performed By: #### CBC #### [facility] [address] [place] [address] Dr. Rob Gu #0.1 103/ulNormal0.0-0.7The [facility] CenterComment on above: Performed By: #### CBC #### [facility] [address] [place] [address] Dr. Rob Valdezosinophils/100 WBC (Bld)2.0 %Normal0.9-7.0[facility] Comment on above:Performed By: #### CBC #### [facility] [address] [place] [address] Dr. Rob Valdezrythrocyte distribution width (RBC) [Ratio]12.2 %Pqecgt12.0-15.0 The [facility] CenterComment on above:Performed By: #### CBC #### [facility] [address] [place] [address] Dr. Rob AdairHematocrit (Bld) [Volume fraction]39.8 %Xtnuhv89.0-48.0The [facility] CenterComment on above:Performed By: #### CBC #### [facility] [address] [place] [address] Dr. Rob AdairHemoglobin (Bld) [Mass/Vol]13.4 g/xOEgtslx38.0-16.0The [facility] CenterComment on above:Performed By: #### CBC #### [facility] [address] [place] [address] Dr. Rob Nye #0.02 10e3/ulNormal0.00-0.03The [facility] CenterComment on above:Performed By: #### CBC #### [facility] [address] [place] [address] Dr. Rob Nye %0.4 %Normal0.0-0.5The [facility] CenterComment on above: Performed By: #### CBC #### [facility] [address] [place] [address] Dr. Rob Ty #1.2 103/ulNormal1.2-3.8The [facility] CenterComment on above:Performed By: #### CBC #### [facility] [address] [place] [address] Dr. Rob Brownhocytes/100 WBC (Bld)23.9 %Fmmovk93.5-60.0The [facility] CenterComment on above:Performed By: #### CBC #### [facility] [address] [place] [address] Dr. Rob JamesUAL DIFF REQNONormalThe [facility] CenterComment on above: Performed By: #### CBC #### [facility] [address] [place] [address] Dr. Rob Marroquin (RBC) [Entitic mass]31.6 vrDjykso25.7-34.0The [facility] CenterComment on above:Performed By: #### CBC #### [facility] [address] [place] [address] Dr. Rob Guevara (RBC) [Mass/Vol]33.7 g/qOYufhrw13.9-35.2The [facility] CenterComment on above:Performed By: #### CBC #### [facility] [address] [place] [address] Dr. Rob Guevara (RBC) [Entitic vol]93.9 lELjmpbr61.0-99.0The [facility] CenterComment on above:Performed By: #### CBC #### [facility] [address] [place] [address] Dr. Rob Mcgee #0.4 103/ulNormal0.3-0.8The [facility] CenterComment on above:Performed By: #### CBC #### [facility] [address] [place] [address] Dr. Rob Beltreocytes/100 WBC (Bld)8.2 %Normal1.7-12.0[facility] Comment on above:Performed By: #### CBC #### [facility] [address] [place] [address] Dr. Rob Dunn #3.3 103/ulNormal1.4-6.5The [facility] CenterComment on above:Performed By: #### CBC #### [facility] [address] [place] [address] Dr. Rob Emersonutrophils/100 WBC (Bld)64.1 %Fxfalf31.0-75.0The [facility] CenterComment on above:Performed By: #### CBC #### [facility] [address] [place] [address] Dr. Rob Ibarralet mean volume (Bld) [Entitic vol]11.2 fLNormal9.5-13.5The [facility] CenterComment on above:Performed By: #### CBC #### [facility] [address] [place] [address] Dr. Rob CliftonT261 103/msUgfabh343-567Uwa [facility] CenterComment on above: Performed By: #### CBC #### [facility] [address] [place] [address] Dr. Rob AdairRBC4.24 106/ulNormal4.20-5.40The [facility] CenterComment on above:Performed By: #### CBC #### [facility] [address] [place] [address] Dr. Rob AdairWBC5.1 103/ulNormal4.0-11.0The [facility] CenterComment on above: Performed By: #### CBC #### [facility] [address] [place] [address] Dr. Rob Amezcua T4on 29-51-5484Ouuu T4 [Mass/Vol]1.10 ng/dLNormal0.76-1.46 [facility] - DublinComment on above:Performed By: #### FT4 ####[facility] [address] [address]Dr.Yilan NelsonID PROFILEon 53-34-8641WFMS-HDL RATIO NORMSEE [facility] Comment on above:Result Comment: 3.3 - 4.4 LOW RISK 4.4 - 7.1 AVERAGE RISK 7.1 - 11.0 MODERATE RISK >11.0 HIGH RISKPerformed By: #### TSH, CMP, LIPID #### [facility] [address] [address] [address] Rob Xiongesterol [Mass/Vol]174 mg/dLNormal<=200[facility] Comment on above:Performed By: #### TSH, CMP, LIPID #### [facility] [address] [address] [address] Rob Xiongesterol in HDL [Mass/Vol]68 mg/dLCritically eumh37-02JtjSelect Medical Ohiohealth Rehabilitation Hospital - DublinComment on above:Performed By: #### TSH, CMP, LIPID #### [facility] [address] [address] [address] Rob Xiongesterol in LDL [Mass/Vol]96.6 mg/dLKettering Health HamiltonComment on above:Performed By: #### TSH, CMP, LIPID #### [facility] [address] [address] [address] Rob Lucas.total/Cholesterol in HDL [Mass ratio]2.6 {ratio} NormalSelect Medical Ohiohealth Rehabilitation Hospital - DublinComment on above:Performed By: #### TSH, CMP, LIPID #### [facility] [address] [address] [address] Rob Borjas NORMAL> or = 60 mg/dl - LOW CARDIOVASCULAR RISK <40 mg/dl - HIGH CARDIOVASCULAR RISKKettering Health HamiltonComment on above:Performed By: #### TSH, CMP, LIPID #### [facility] [address] [address] [address] Rob Vargas CALC NORMALSEE BELOWNoAkron Children's HospitalComment on above:Result Comment: <100 mg/dl OPTIMAL 100 - 129 mg/dl NEAR OR ABOVE OPTIMAL 130 - 159 mg/dl BORDERLINE HIGH 160 - 189 mg/dl HIGH >190 mg/dl VERY HIGH Performed By: #### TSH, CMP, LIPID #### [facility] [address] [address] [address] Rob AdairTriglyceride [Mass/Vol]47 mg/dLNormal<=150The [facility] Comment on above:Performed By: #### TSH, CMP, LIPID #### [facility] [address] [place] [address] Dr. Rob AdairVLDL CALC9.4 mg/dLNoAkron Children's HospitalComment on above: Performed By: #### TSH, CMP, LIPID #### [facility] [address] [place] [address] Dr. Rob AdairPROF 14(COMP METB)on 63-76-1593Podlgkk [Mass/Vol]4.2 g/dLNormal 3.4-5.0The [facility] CenterComment on above:Performed By: #### TSH, CMP, LIPID #### [facility] [address] [place] [address] Dr. Rob AdairAlbumin/Globulin [Mass ratio]1.4 {ratio}NormalThe [facility] CenterComment on above:Performed By: #### TSH, CMP, LIPID #### [facility] [address] [place] [address] Dr. Rob Burgos [Catalytic activity/Vol]44 U/LCritically dqw16-267Npf [facility] CenterComment on above:Performed By: #### TSH, CMP, LIPID #### [facility] [address] [place] [address] Dr. Rob Pedro [Catalytic activity/Vol]19 U/XJotjpy74-20Oxw [facility] CenterComment on above:Performed By: #### TSH, CMP, LIPID #### [facility] [address] [address] [address] Rob Trejo gap [Moles/Vol]12.7 mmol/LNormalThe [facility] Comment on above:Performed By: #### TSH, CMP, LIPID #### [facility] [address] [address] [address] Rob AdairAST [Catalytic activity/Vol]16 U/SPnarkv76-06Gsr [facility] CenterComment on above:Performed By: #### TSH, CMP, LIPID #### [facility] [address] [address] [address] Rob AdairBilirubin [Mass/Vol]1.7 mg/dLCritically high0.2-1.0The [facility] CenterComment on above:Performed By: #### TSH, CMP, LIPID #### [facility] [address] [address] [address] Rob AdairCalcium [Mass/Vol]9.2 mg/dLNormal8.5-10.1[facility] Comment on above:Performed By: #### TSH, CMP, LIPID #### [facility] [address] [address] [address] Rob AdairChloride [Moles/Vol]98 mmol/GSabqqf96-404Xbn [facility] Comment on above:Performed By: #### TSH, CMP, LIPID #### [facility] [address] [address] [address] Rob AdairCO2 [Moles/Vol]27.2 mmol/SGcouny03.0-32.0The [facility] Comment on above:Performed By: #### TSH, CMP, LIPID #### [facility] [address] [address] [address] Rob AdairCreatinine [Mass/Vol]0.86 mg/dLNormal0.55-1.02The [facility] CenterComment on above:Performed By: #### TSH, CMP, LIPID #### [facility] [address] [address] [address] Rob ValdezGFR-AF EQUATORIAL GUINEAN>60Normal>=60The [facility] CenterComment on above:Performed By: #### TSH, CMP, LIPID #### [facility] [address] [address] [address] Rob ValdezGFR-NON AF EQUATORIAL GUINEAN>60Normal>=60The [facility] CenterComment on above:Performed By: #### TSH, CMP, LIPID #### [facility] [address] [address] [address] Rob AdairGlobulin (S) [Mass/Vol]2.9 g/dLNormalThe [facility] CenterComment on above:Performed By: #### TSH, CMP, LIPID #### [facility] [address] [address] [address] Rob AdairGlucose [Mass/Vol]83 mg/iHNtnemg92-510Peu [facility] Comment on above:Performed By: #### TSH, CMP, LIPID #### [facility] [address] [place] [address] Dr. Rob AdairPotassium [Moles/Vol]3.9 mmol/LNormal3.5-5.1The [facility] Comment on above:Performed By: #### TSH, CMP, LIPID #### [facility] [address] [address] [address] Rob AdairProtein [Mass/Vol]7.1 g/dLNormal6.4-8.2[facility] Comment on above:Performed By: #### TSH, CMP, LIPID #### [facility] [address] [address] [address] Rob AdairSodium [Moles/Vol]134 mmol/LCritically btz749-064Zrl [facility] CenterComment on above:Performed By: #### TSH, CMP, LIPID #### [facility] [address] [place] [address] Dr. Rob AdairUrea nitrogen [Mass/Vol]11.0 mg/dLNormal7.0-18.0The [facility] CenterComment on above:Performed By: #### TSH, CMP, LIPID #### [facility] [address] [place] [address] Dr. Rob AdairUrea nitrogen/Creatinine [Mass ratio]12.8 mg/mgNormalThe [facility] CenterComment on above:Performed By: #### TSH, CMP, LIPID #### [facility] [address] [address] [address] Rob Braun 03-02-8283KNF1.569 uIU/mLNormal0.358-3.740The [facility] CenterComment on above:Performed By: #### TSH, CMP, LIPID #### [facility] [address] [address] [address] Rob Infante RANDOM W/MICROSCOPICon 76-02-6347XQRGOIFOMZMZEEvdltzsfWKKD SEENThe [facility] CenterComment on above:Performed By: #### UAMIC ####[facility] [address] [address]Dr. Rob Adair Bilirubin Ql (U)NegativeNormalNEGATIVEThe [facility] CenterComment on above: Performed By: #### UAMIC ####[facility] [address] [address]Dr. Rob ChangCASTNONE SEENNormalNONE SEENSelect Medical [facility] Rehabilitation Hospital - DublinComment on above:Performed By: #### UAMIC ####[facility] [address] [place], [place] [address]Dr. Rob ChangClarity (U) CLEARNormalCLEARSelect Medical Ohiohealth Rehabilitation Hospital - DublinComment on above:Performed By: #### UAMIC ####[facility] [address] [address]Dr. Rob AdairColor (U)LT. YELLOWNormalYELLOWSelect Medical Ohio[facility] Rehabilitation Hospital - DublinComment on above: Performed By: #### UAMIC ####[facility] [address] [address]Dr. Rob AdairCrystals LM Nom (Urine sed)NONE SEEN NormalNONE SEENThe [facility] CenterComment on above:Performed By: #### UAMIC ####[facility] [address] [address]Dr. Rob ChangEpithelial cells LM Ql (Urine sed)FEWAbnormalNONE SEEN /RAREThe [facility] CenterComment on above:Performed By: #### UAMIC ####[facility] [address] [address]Dr. Yilan ChangGlucose Ql (U) NegativeNormalNEGATIVESelect Medical [facility] Hospital - DublinComment on above:Performed By: #### UAMIC ####[facility] [address] [place], [place] [address]Dr. Yilan ChangHemoglobin Ql (U)NegativeNormalNEGATIVESelect Medical [facility] Comment on above:Performed By: #### UAMIC ####[facility] [address] [place], [place] [address]Dr. Yilan ChangKetones Ql (U)NegativeNormal NEGATIVESelect Medical [facility] Rehabilitation Hospital - DublinComment on above:Performed By: #### UAMIC ####[facility] [address] [place], [place] [address]Dr. Yilan ChangLEUKOCYTESTRACEAbnormalNEGATIVESelect Medical [facility] Hospital - DublinComment on above: Performed By: #### UAMIC ####[facility] [address] [place], [place] [address]Dr. Yilan ChangMUCOUSNONE SEENNormalNONE SEENSelect Medical [facility] Rehabilitation Hospital - DublinComment on above:Performed By: #### UAMIC ####[facility] [address] [place], [place] [address]Dr. Yilan ChangNitrite Ql (U) NegativeNormalNEGATIVESelect Medical [facility] Hospital - DublinComment on above:Performed By: #### UAMIC ####[facility] [address] [place], [place] [address]Dr. Yilan ChangpH (U)7.0 [pH]Normal5-9[facility] - DublinComment on above:Performed By: #### UAMIC ####[facility] [address] [place], [place] [address]Dr. Nahomilan DucaaEGO3-5Wzrtpiih9-9Wxx [facility] Comment on above:Performed By: #### UAMIC ####[facility] [address] [place], [place] [address]DrNatalie AdairSPEC GRAVITY1.010Normal 1.005-<=1.025The [facility] CenterComment on above:Performed By: #### UAMIC ####[facility] [address] [place] [address]DrNatalie AdairUA PROTEINNegativeNormalNEGATIVE/ TRACEThe [facility] CenterComment on above:Performed By: #### UAMIC ####[facility] [address] [address]DrNatalie AdairUrobilinogen Qn (U)0.2 {Lamonte'U}/dL Normal0.2 - 1.0The [facility] CenterComment on above:Performed By: #### UAMIC ####[facility] [address] [place], [place] [address]DrNatalie AdairWBC2-5AbnormalNONE SEENThe [facility] CenterComment on above: Performed By: #### UAMIC ####[facility] [address] [address]DrNatalie AdairWELLSTAR [facility] GLUCOSEon 06-17-2022 Glucose [Mass/Vol]74 mg/rJAesbuk81-538FlcSelect Medical [facility]health Rehabilitation Hospital - DublinComment on above: Performed By: #### POCGLUC #### [facility] [address] [place] [address] Dr. Rob AdairGlucose [Mass/Vol]82 mg/wISlnfrn26-462Cfx [facility] Comment on above:Performed By: #### POCGLUC ####[facility] [address] [place], [place] [address]DrNatalie Lovell Summary.on 06-14-2022 Coding Summary. CD:[id number]+PGhlYWQ+QO9FHYGwZ27awHJgnC8LL9mFHQ8UETMNVIHLFW4VJO1yo AX3PXzhW0BhjmGf [file] bGxh (more content not included)...[facility] SouthCovid-19 PCR (CVDTBH)on 88-67-9076XQFE-CoV-2 (COVID-19) RNA QUE+probe Ql (Unsp spec)Not detectedNormalNOT DETECTEDThe [facility] CenterComment on above:Result Comment: This test is not yet approved or cleared by the [place] FDA. When there are no FDA-approved or cleared tests available, and other criteria are met, FDA can make tests available under an emergency access mechanism called an Emergency Use Authorization (EUA). The EUA for this test is supported by the Clinical Marketing Manager of Health and Human Service's (HHS's) declaration that circumstances exist to justify the emergency use of in vitro diagnostics for the detection and/or diagnosis of the virus that causes COVID-19. This EUA will remain in effect (meaning this test can be used) for the duration of the COVID-19 declaration justifying emergency of IVDs, unless it is terminated or revoked by FDA (after which the test may no longer be used). When diagnostic testing is negative, the possibility of a false negative should be considered in the context of a patient's recent exposures and the presence of clinical signs and symptoms consistent with SARS-CoV-2.Performed By: #### CVDTBH ####[facility] [address] [place], [place] [address]Vv. Rob Hay for Treatmenton 73-39-5963Ehcejdl for Treatment [id number]#1.00CD:127[facility] SouthOffice/Clinic Note-Physicianon 11-03-7315Kdartf/Clinic Note-Physician [id number]#1.00CD:127[facility] SouthPatient Correspondenceon 09-60-9718Tdcavas Correspondence [id number]#1.00CD:[address] [place], [place] [address]Patient History Officeon 56-54-5550Rsigers History Office [id number]#1.00CD:[address] [place], [place] [address]PROF CHEM 8 (BAS METB)on 97-12-0147Xmkyj gap [Moles/Vol]10.2 mmol/LNormal The [facility] CenterComment on above:Performed By: #### BMP #### [facility] [address] [address] [address] Rob AdairCalcium [Mass/Vol]8.6 mg/dLNormal8.5-10.1[facility] Comment on above:Performed By: #### BMP #### [facility] [address] [address] [address] Rob AdairChloride [Moles/Vol]98 mmol/PSvadcp30-013[facility] Comment on above:Performed By: #### BMP #### [facility] [address] [place] [address] Dr. Rob AdairCO2 [Moles/Vol]30.2 mmol/GJtsuwb70.0-32.0[facility] Comment on above:Performed By: #### BMP #### [facility] [address] [place] [address] Dr. Rob AdairCreatinine [Mass/Vol]0.86 mg/dLNormal0.55-1.02[facility] - DublinComment on above:Performed By: #### BMP #### [facility] [address] [place] [address] Dr. Rob ValdezGFR-AF EQUATORIAL GUINEAN>60Normal>=60The [facility] CenterComment on above:Performed By: #### BMP #### [facility] [address] [address] [address] Rob ValdezGFR-NON AF EQUATORIAL GUINEAN>60Normal>=60The [facility] CenterComment on above:Performed By: #### BMP #### [facility] [address] [address] [address] Rob AdairGlucose [Mass/Vol]95 mg/vIXvgmgg46-499GfbSelect Medical [facility] Comment on above:Performed By: #### BMP #### [facility] [address] [address] [address] Rob AdairPotassium [Moles/Vol]3.4 mmol/LCritically low3.5-5.1[facility] - DublinComment on above:Performed By: #### BMP #### [facility] [address] [address] [address] Rob Ocampodium [Moles/Vol]135 mmol/LCritically plx062-327Kwi [facility] CenterComment on above:Performed By: #### BMP #### [facility] [address] [place] [address] Dr. Rob Green nitrogen [Mass/Vol]6.0 mg/dLCritically low7.0-18.0The [facility] CenterComment on above:Performed By: #### BMP #### [facility] [address] [place] [address] Dr. Rob Green nitrogen/Creatinine [Mass ratio]7.0 mg/mgNoalThParma Community General HospitalComment on above:Performed By: #### BMP #### [facility] [address] [place] [address] Dr. Rob AdairOrders Officeon 82-17-5103Emwrhx Office [id number]#1.00CD:[address] [place], [place] [address]Coding Summary.on 59-52-4537Hbpllj Summary. CD:[id number]:[id number]+PGhlYWQ+IH3WIWWwR70dkRXosI5EH9eLWH7OKUFSCYRHNX2MNL9il SJ6KUisZ7QeegQt [file] bGxh (more content not included)...NormalMari[facility] for Procedure/Surgeryon 99-09-8612Qynnodi for Procedure/Surgery [id number]#1.00CD:127NormalMarietta Osteopathic Clinic for Treatmenton 30-56-1263Fjrguvd for Treatment [id number]#1.00CD:127NormCleveland Clinic Union HospitalDischarge Instructionson 80-83-9482Zcpmdttkt Instructions [id number]#1.00CD:127FabiolaOhioHealth Van Wert HospitalIntraOperative Documentson 17-48-2724VxhglAiuxikwng Documents [id number]#1.00CD:127NoOhioHealth Van Wert HospitalIntraOperative Documents [id number]#1.00CD:127[facility] SouthMain OR Intraoperative Recordon 83-41-2060Kbph OR Intraoperative Record IntraOp Document Type FTPM Summary Primary Physician: Balta Chang MD Finalized Date/Time: 03/17/22 11:54:27 Pt. Name: CHERELLE TUTTLE /Sex: 1965 Female Med Rec #: [id number] Physician: Balta Chang MD Financial #: [id number] Pt. Type: P Room/Bed: / Admit/Disch: 03/17/22 10:23:56 - Institution: Case Times FTPM Entry 1 Patient Times In Room 03/17/22 11:38:00 Out Room 03/17/22 11:45:00 Procedure Times Start 03/17/22 11:41:00 Stop 03/17/22 11:44:00 Anesthesia Times Last Modified By: Eleanor Sanchez RN 03/17/22 11:46:11 Case Attendance FTPM Entry 1 Entry 2 Entry 3 Case Attendee Bernardo SANTANA, Balta Adams RN, Eleanor Zamora RN Role Performed Surgeon - Primary Scrub - Primary Bdc Manager - Primary Time In 03/17/22 11:38:00 03/17/22 11:38:00 03/17/22 11:38:00 Time Out 03/17/22 11:45:00 03/17/22 11:45:00 03/17/22 11:45:00 Procedure TRANSFORAMINAL EPIDURAL TRANSFORAMINAL EPIDURAL TRANSFORAMINAL EPIDURAL STEROID INJECTIO(Left) STEROID INJECTIO(Left) STEROID INJECTIO(Left) Comments Last Modified By: Eleanor Sanchez RN 03/17/22 Eleanor Sanchez RN 03/17/22 Eleanor Sanchez RN 03/17/22 11:54:17 11:54:17 11:54:17 Entry 4 Case Attendee Delfina BERGERR)[place] Role Performed [employer] Time In 03/17/22 11:38:00 Time Out 03/17/22 11:45:00 Procedure TRANSFORAMINAL EPIDURAL STEROID INJECTIO(Left) Comments Last Modified By: Eleanor Sanchez RN 03/17/22 11:54:17 Perioperative Protocols FTPM Pre-Care Text: Implements protective measures prior to operative or invasive procedure, confirms identity before the operative or invasive procedure, verifies operative procedure, surgical site, and laterality Entry 1 Procedure(s) TRANSFORAMINAL EPIDURAL Patient Identity Birthday, ID Band STEROID INJECTIO(Left) Verified (select at Check, Patient least 2): Participation Consents / H and P HandP, Surgery/Procedure Operative Site Present Verified Consent Marking Verified Surgical Site Yes Laterality Verified Yes Verified Procedure Verified Yes Correct Patient Yes Position Verified Availability Equipment, Medication, Prep Dry Yes Verified (If X-ray Applicable) PreOp Antibiotic No Time Out Eleanor Sanchez RN, Myers Given Participants RN, Bernardo Davenport MD, Zachary, Christman RT(R)[place] Time Out Complete 03/17/22 11:40:00 Outcomes Met? Yes Last Modified By: Eleanor Sanchez RN 03/17/22 11:40:06 Post-Care Text: The patient is free from signs and symptoms of injury caused by extraneous objects Allergy Information FTPM Pre-Care Text: Verifies allergies Entry 1 Allergies Reviewed? Yes Allergies Reviewed Self/Patient With Outcomes Met? Yes Last Modified By: Eleanor Sanchez RN 03/17/22 10:28:44 Post-Care Text: The patient received appropriate medication(s) safely administered during the perioperative period Surgical Procedures FTPM Entry 1 Procedure Description Procedure TRANSFORAMINAL EPIDURAL Modifiers Left STEROID INJECTION Surgeon Description L4 + 5 TFESI Primary Procedure Yes Primary Surgeon Balta Chang MD Start 03/17/22 11:41:00 Stop 03/17/22 11:44:00 Anesthesia Type None Surgical Service Pain Management Wound Class 1 - Clean Last Modified By: Eleanor Sanchez RN 03/17/22 11:54:19 General Case Data FTPM Pre-Care Text: Classifies surgical wound, implements aseptic technique, initiates traffic control Entry 1 Case Information OR Pain Proc Room Case Level Level 2 Wound Class 1 - Clean Specialty Pain Management Preop Diagnosis M54.17 Postop Same As Preop Yes Postop Diagnosis M54.17 Outcomes Met? Yes Last Modified By: Eleanor Sanchez RN 03/17/22 10:29:01 Post-Care Text: The patient is free from signs and symptoms of infection Skin Assessment (Pre Procedure) FTPM Pre-Care Text: Implements protective measures to prevent skin/ tissue injury due to thermal or mechanical sources Evaluates for signs and symptoms of physical injury to skin and tissue Entry 1 Skin Integrity Intact, [place], Warm, and Skin Abnormality No Dry Outcomes Met? Yes Last Modified By: Eleanor Sanchez RN 03/17/22 10:29:12 Post-Care Text: The patient is free from signs and symptoms of injury caused by extraneous objects Patient Positioning FTPM Pre-Care Text: Identifies physical alterations that require additional precautions for procedure-specific positioning, verifies presence of prosthetics or corrective devices, positions the patient, evaluates the patient for signs and symptoms of injury as a result of positioning Entry 1 Procedure TRANSFORAMINAL EPIDURAL Body Position Prone STEROID INJECTIO(Left) Feet Uncrossed? Yes Left Arm Position Resting at Side Right Arm Position Resting at Side Left Leg Position Extended Right Leg Position Extended Positioning Device Pillow Under Head Large, Safety Strap, Pillow Large Under Knees Press Points Checked Yes By Eleanor Sanchez RN Outcomes Met? Yes Last Modified By: Eleanor Sanchez RN 03/17/22 (more content not included)...[facility] Preoperative Recordon 76-77-6561Gclx OR Preoperative RecordHolding Area Document Type FTPM Summary Primary Physician: Balta Chang MD Finalized Date/Time: 03/17/22 10:38:29 Pt. Name: CHERELLE TUTTLE/Sex: 1965 Female Med Rec #: [id number] Physician: Balta Chang MD Financial #: [id number] Pt. Type: P Room/Bed: / Admit/Disch: 03/17/22 10:23:56 - Institution: Case Times Holding FTPM Pre-Care Text: Verifies consent for planned procedure, identifies individual values and wishes concerning care, includes family members in perioperative teaching Secures patient's records' belongings, and valuables, maintains patient's dignity and privacy, and maintains patient confidentiality Entry 1 In Holding 03/17/22 10:36:00 Outcomes Met? Yes Last Modified By: Annette Almaraz RN 03/17/22 10:36:46 Post-Care Text: The patient participates in decisions affecting his or her perioperative plan of care The patient'sright to privacy is maintained Surgery Checklist FTPM Entry 1 Patient Birthday, ID Band Procedure History and Physical, Identification: Check, Patient Verification: Surgical Consent, With Participation Patient NPO after Midnight: Yes Personal Items: Glasses, Jewelry Personal Items watch Complaints of Pain: Yes Comment: Pain Comment: 12/15 left foot/ Operative Site Yes leg/buttocks Marking: Marked By: zumbar Location: left Availability Equipment, X-Ray Verified: Does Patient Smoke No Patient states Yes Comment - Adult dad alejandro postop adult Supervision supervision available Case Cancelled in No Holding Area see comments below for reason Last Modified By: Annette Almaraz RN 03/17/22 10:38:22 Finalized By: Annette Almaraz RN Document Signatures Signed By: Annette Almaraz RN 03/17/22 10:38[facility]Operative Report on 02-72-1054Slhllecpl ReportSURGERY DATE: 03/17/2022 DIAGNOSIS: Lumbosacral radiculopathy OPERATION: Left-sided lumbar transforaminal epidural steroid injection under fluoroscopic guidance at the L4 and L5 nerve roots SOLUTION USED: 5 mL of 0.5% lidocaine with 40 mg of Kenalog, 2.5 mL per site; live contrast was also used ANESTHESIA: Local COMPLICATIONS: None NOTES: The procedure was performed at the left L4 and L5 levels because the patient has symptoms inthe distribution of those two nerve roots. PROCEDURE: After informed consent was obtained, the patient was brought to the Operating Room and placed in the prone position. The area in question was prepped and draped in a sterile fashion. An ipsilateral oblique fluoroscopic view of the lumbar spine was obtained and after a local anesthetic was administered into the skin, a 22 gauge Chiba needle was inserted into the skin and advanced to the6 o'clock position beneath the left L4 and left L5 pedicles under intermittent fluoroscopic guidance. Proper needle position was confirmed via AP and lateral fluoroscopy. Contrast was administered under live fluoroscopy at each site and demonstrated appropriate epidural and nerve root uptake and the absence of any intravascular or intrathecal spread. The local anesthetic steroid solution was injected incrementally at each site. The needles were removed. Bleeding was nil. The patient tolerated the procedure well and was transferred to the Recovery Room in good condition. Balta Chang M.D. Dictated: 03/17/2022 [id number] Transcribed: 03/17/2022[facility] SouthComment on above:Result Comment: Electronically Signed By: Bernardo SANTANA, Balta\.br\Date and Time Signed: 03/17/22 17:32 EDTInsurance Correspondence Officeon 56-44-0443Mfziiqedi Correspondence [id number]#1.00CD:127[facility] HospitalIns[facility] Correspondence Officeon 42-06-9430Zfuysokeg Correspondence [id number]#5.00CD:[address] [place], [place] [address]Patient Correspondenceon 38-56-3132Sgwfmou Bynfytjy[id number]#1.00CD:[address] [place], [place] [address]Coding Summary.on 07-09-5394Zicyll Summary. CD:375521OQ:1144176ZKt8rBg+PGhlYWQ+WQ4QLVZxH16znMBfqA8DU4cAQR6QDGHZLLBJYD2TSK6tg AU8MOxdB7IoigSt [file] bGxh (more content not included)...NormalSamaritan HospitalInsurance Correspondence Officeon 64-95-6541Wtjgswasv Correspondence Office [id number]#1.00CD:127NormalSamaritan HospitalOrders Officeon 73-14-0541Smbyxu Office [id number]#1.00CD:[address] [place], [place] [address]Consent for Treatmenton 32-01-2680Xnvveez for Treatment [id number]#1.00CD:[address] [place], [place] [address]Office/Clinic Note-Physicianon 91-57-3413Bezzfd/Clinic Note-Physician [id number]#1.00CD:[address] [place], [place] [address]Orders Officeon 81-70-7603Yimxto Office [id number]#1.00CD:[address] [place], [place] [address]Orders [id number]#1.00CD:[address] [place], [place] [address]Patient Correspondenceon 05-85-5973Inqvvav Tyqylgjxo[id number]#1.00CD:[address] [place], [place] [address]Patient History Officeon 73-50-1094Ghclyga History Office [id number]#1.00CD:[address] [place], [place] [address]Radiology Outside Office Copyon 16-59-3846Asllkivpx Outside Office Copy [id number]#1.00CD:[address] [place], [place] [address]XR Spine Lumbar 4+ Views*on 92-17-7728AE Spine Lumbar 4+ Views*HISTORY: Left leg radiation, fall (6 mths) FINDINGS: Minimal thoracolumbar dextroscoliosis is present. Vertebral body heights are normal. Disc space heights are fairly well maintained. Mild central end plate depressions throughout the lumbar spine. Sclerosis involves posterior elements of the mid and distal lumbar spine and sacroiliac joints; however, no spondylolysis or spondylolisthesis is seen. No acute fracture is identified. Soft tissues are relatively unremarkable. IMPRESSION: Normal vertebral body alignment, central end plate depressions (unlikely acute). If localizing symptoms are present, MRI would be of assistance. Report reported and signed by Tree Root on 01/25/2022 1515NormalNorthern [facility] SpecialistOrders Officeon 66-18-5226Adieio Office [id number]#1.00CD:127NojoséSamaritan HospitalOrders Io[id number]#1.00CD:127NoBarberton Citizens HospitalCoding Summary.on 87-24-5900Kpnmct Summary. CD:140472EM:0188379WTr1aQk+PGhlYWQ+UP8ZLXTcZ52ukRLgvD3ZJ8fBME7YIWADSPEOFL6BKP3vc XP6OHrkC9GyerPv [file] bGxh (more content not included)...NormalSamaritan HospitalWorkers' Comp Officeon 18-35-8973Cbccdtf' Comp Office [id number]#2.00CD:127NormCleveland Clinic Union HospitalCoding Summary.on 43-24-9892Vpksni Summary. CD:514409YI:2599870DTz4dVu+PGhlYWQ+DW4JWFUpY58hzKTyiF0NC2qEXS1NJEWDNGNVOT5RXI7vq BF9CQzfQ4UjnhSk [file] ZTog (more content not included)...NormalSamaritan HospitalConsent for Treatmenton 64-19-5480Sopyylw for Treatment [id number]#1.00CD:[address] [place], [place] [address]Office/Clinic Note-Physicianon 56-88-6699Ucplrf/Clinic Note-Physician [id number]#1.00CD:[address] [place], [place] [address]Orders Officeon 38-11-4112Oqoymm Office [id number]#1.00CD:[address] [place], [place] [address]Patient Correspondenceon 40-68-7632Ehqjzuy Correspondence [id number]#1.00CD:[address] [place], [place] [address]Patient History Officeon 16-38-3627Tulisgi History Office [id number]#1.00CD:[address] [place], [place] [address]Outside Records Officeon 88-40-5505Rcwbzbh Records Office [id number]#1.00CD:[address] [place], [place] [address]Consent for Treatmenton 23-82-2699Rnzbrud for Treatment [id number]#1.00CD:[address] [place], [place] [address]EMG Electromyographyon 68-28-5595OAC Electromyography [id number]#1.00CD:[address] [place], [place] [address]Coding Summary.on 04-85-4570Qxqcik Summary. CD:673770QO:9506281JMu6vZz+PGhlYWQ+YA8TVYCoH03ymQJusN4LD5mXYJ4BUISICRSDZP2WKG1zz FR3KTvoK5UtisAg [file] YXBz (more content not included)...NormalFisher [facility]itan HospitalOrders Officeon 68-13-6011Fmxspz Office [id number]#1.00CD:127NormCleveland Clinic Union HospitalPhysician Orderon 34-57-0566Fxcnipanz Order [id number]#1.00CD:127NormalSamaritan HospitalWorkers' Comp Officeon 06-54-2505Cdsooib' Comp Office [id number]#2.00CD:[address] [place], [place] [address]Consent for Treatmenton 98-95-7550Pasctds for Treatment [id number]#1.00CD:[address] [place], [place] [address]HIPAA Forms Officeon 60-23-2225RYGEF Forms Office [id number]#1.00CD:[address] [place], [place] [address]Legal Correspondence Officeon 96-96-2733Aqiys Correspondence Office [id number]#1.00CD:[address] [place], [place] [address]Office/Clinic Note-Physicianon 28-33-3150Mangce/Clinic Note-Physician [id number]#2.00CD:[address] [place] [address]Orders Officeon 06-87-8565Mygwoj Office [id number]#1.00CD:[address] [place], [place] [address]Patient Correspondenceon 64-77-2037Rumsgxi Correspondence [id number]#1.00CD:[address] [place], [place] [address]Patient Dtnuxlrohdwbff122..[id number]#1.00CD:127 [facility] SouthPatient Correspondence [id number]#1.00CD:[address] [place], [place] [address]Patient Zdepivxwqvyoou[id number]#1.00CD:[address] [place], [place] [address]Patient Correspondence [id number]#1.00CD:[address] [place] [address]Patient Nowfobljpwx[id number]#1.00CD:127 [facility] SouthPatient History Officeon 36-18-3217Qwsmzfh History X[id number]#1.00CD:127[facility] SouthRadiology Outside Office Copyon 46-85-4168Acfnwlazy Outside Office [id number]#1.00CD:127[facility] SouthRadiology Outside Office Copy [id number]#1.00CD:127[facility] SouthOutside Records Officeon 85-29-0417Aklsrov Records Office [id number]#1.00CD:127[facility] SouthRadiology Outside Office Copyon 20-36-1137Borqdhbis Outside Office Copy [id number]#1.00CD:127[facility] SouthRadiology Outside Office Copy [id number]#1.00CD:127[facility] SouthWorkers' Comp Officeon 56-59-1383Gnevghl' Comp Office [id number]#1.00CD:127[facility] SouthWorktuba city regional health care corporation' Comp [id number]#1.00CD:127 [facility] SouthUS KIARA DOP LEG LTon 32-20-4235EI KIARA DOP LEG LT EXAMINATION: US KIARA DOP LEG LT HISTORY: Sprain of left knee ; left knee pain since falling 2 months ago COMPARISON: No relevant comparison available. FINDINGS: REGION: Left lower extremity THROMBI: None. COMPRESSIBILITY: Normal compressibility. FLOW: Normal waveform and antegrade flow between 5 and 20 cm/s. OTHER: Short segment of thrombus within the small saphenous vein (superficial vein). IMPRESSION: 1. No deep vein thrombus within the left lower extremity. 2. Short segment of thrombus within the small saphenous vein; chronic versus acute superficial thrombophlebitis. Electronically authenticated by: NITIN MEYER Date: 2021-09-24 16:28[facility] HamiltonMRI KN[facility] WO CONon 32-08-5522SIT KNEE LT WO CONEXAMINATION: MRI KNEE LT WO CON HISTORY: Sprain of left knee ; acute left knee pain since falling one month ago COMPARISON: No relevant comparison available. TECHNIQUE: A complete multi-planar MRI was performed. FINDINGS: MEDIAL COMPARTMENT MEDIAL MENISCUS: No visible tear or significant degeneration. CARTILAGE: No visible defect. BONES: Bone bruising along the medial margin of the medial femoral condyle. MCL AND MEDIAL CAPSULE: Grade I sprain of the medial collateral ligament. LATERAL COMPARTMENT LATERAL MENISCUS: No visible tear or significant degeneration. CARTILAGE: No visible defect. BONES: No marrow pathology, fracture, or significant arthropathy. LCL/POSTEROLAT COMPLEX: Normal lateral collateral ligament, fascicles, lateral capsule and ligaments. ANTERIOR COMPARTMENT PATELLA: No marrow pathology, fracture, or significant arthropathy. CARTILAGE: No visible defect. TENDONS: Normal. EFFUSION: None. No synovitis or loose bodies. ACL: Normal appearing ligament. PCL: Normal appearing ligament. MENISCOFEMORAL: Normal meniscofemoral ligaments. OTHER: Negative. IMPRESSION: 1. Mild bone bruising of the medial margin of the medial femoral condyle likely accounting for patient's symptoms. 2. Mild strain of the medial collateral ligament. Electronically authenticated by: NITIN MEYER Date: 2021-08-21 10:16[facility] HamiltonXR FOREIGN BODY EYEon 15-63-8769LP FOREIGN BODY EYEEXAM: XR FOREIGN BODY EYE HISTORY: Screening for MRI. COMPARISON: None. TECHNIQUE: A Lomax' view and lateral views of the skull were obtained. FINDINGS: There are no metallic foreign bodies in or near the orbits. The sinuses are grossly clear. No suspicious or destructive bone lesions are seen. IMPRESSION: The patient is cleared for MRI. Electronically authenticated by: DAREN JOHNSTON Date: 2021-08-21 08:56[facility] HamiltonCT Sinus w/o Contrast*on 06-45-9315QM Sinus w/o Contrast* CLINICAL HISTORY: Bilateral tinnitus with hearing loss, nasal congestion, facial pain. COMPARISON: None. TECHNIQUE: Spiral high-resolution unenhanced images were obtained through the paranasal sinuses with sagittal and coronal reconstructions. CONTRAST: None. All CT scans at this facility use dose modulation, iterative reconstruction, and/or weight based dosing when appropriate to reduce radiation dose to as low as reasonably achievable. RESULT: Post-surgical: None. Sinus Chambers: Clear. Nasal cavities: Visualized nasal cavities appear patent. S-shaped nasal septum, deviating toward the right more anteriorly and toward the left more posteriorly, with bony hypertrophy. Developmental anomalies: None. Ostiomeatal complex: Patent within the constraints of the study. Other: Visualized mastoid air cells clear. Middle ear cavities are clear. Soft tissues of the face and orbits are within normal limits with limitations of the study. Visualized brain unremarkable. Incomplete fusion of the posterior arch of C1, normal variant. IMPRESSION: Unremarkable CT of the sinuses. Report reported and signed by Myke Henning on 07/28/2021 1005NoPremier Health Miami [facility] Hospital NorthCT CERVICAL SPINE WO CONTRASTon 88-59-5024HL CERVICAL SPINE WO CONTRASTREPORT: CT cervical spine without contrastTECHNIQUE: Contiguous thin axial slices through the cervical spine obtained without contrast. Axial, coronal and sagittal reformats made.INDICATION: Neck pain status post injuryFINDINGS: No previous examinations available for comparison.Vertebral body heights and alignment are well-maintained. There is no evidence of acute fracture. The odontoid process, occipital condyles and C1 arch are intact. Congenital nonunion of the C1 arch. Disc heights are preserved. No significant central canal or neural foraminal stenosis. No acute disc herniation is seen. P revertebral soft tissues are normal.Final report electronically signed by Brisa Pepe on 03/24/2017 3:04 PMIMPRESSION: No findings to suggest acute cervical spine injuryInterpreted by:PRASANTH Lopesigned by:Brisa Pepe MD03/24/17[facility] resultNormalSelect [facility] Specialty [facility] SouthCT HEAD WO CONTRASTon 03-24-2017 CT HEAD WO CONTRASTREPORT: CT head without contrastTECHNIQUE: Contiguous thin axial slices through the head obtained without IV contrast.INDICATION: Headache status post injuryFINDINGS: No evidence of acute cerebral cortical infarction, hemorrhage or mass lesion. Normal white matter density. Normal cerebral and cerebellar volume. No hydrocephalus. Calvarium is intact. Paranasal sinuses and mastoid air cells are clear.Final report electronically signed by Brisa Pepe on 03/24/2017 3:03 PMIMPRESSION: Normal CT headInterpreted by:PRASANTH Lopesigned by:Brisa Ppee MD03/24/17Final resultNoMercy Health St. [facility] Hospital HospitalCT THORACIC SPINE WO CONTRASTon 24-63-6616EC THORACIC SPINE WO CONTRASTREPORT: CT thoracic spine without contrastTECHNIQUE: Contiguous thin axial slices through the thoracic spine obtained without contrast. Axial, coronal and sagittal reformats made.INDICATION: Upper back pain status post MVAFINDINGS: No previous examinations available for comparison.Vertebral body heights and alignment are well-maintained. There is no evidence of acute fracture. Disc heights are pre served. No significant central canal or neural foraminal stenosis. No acute disc herniation is seen. Costovertebral articulations are within normal limits. Visualized chest is unremarkable.Final report electronically signed by Brisa Pepe on 03/24/2017 3:06 PMIMPRESSION: No findings to suggest acutethoracic spine injuryInterpreted by:PRASANTH Lopesigned by:Brisa Pepe MD03/24/17[facility] resultMiami Valley Hospital HospitalED Provider Noteon 98-60-5901CUA IP Note OR TranscriptionAultman [facility] Vital Signs Date TimeVital SignValuePerforming QcmxumyveOglijqfh83-64-9221 09:01-0400Body azwzqj672.56 cmLisa [facility] Work Phone: [facility]08-04-2025 09:01-0400 Body mass index (BMI) [Ratio]27.1 kg/m2[facility] Work Phone: [facility]08-04-2025 09:01-0400 Body ulaiwm15.83 kgsa [facility] Work Phone: [facility]08-04-2025 09:01-0400 Diastolic blood pfcigvpl56 mm[Hg]Manuela [facility] Work Phone: [facility]08-04-2025 09:01-0400 Heart rate82 /minLisa Aichholz Work Phone: 1([phone])775-[address] [place], [place] 1313208-04-2025 09:01-0400 Respiratory rate16 /minLisa Aichholz Work Phone: [phone]08-04-2025 09:01-0400 SaO2% (BldA) [Mass fraction]98 %Manuela Aichholz Work Phone: 1([phone])127-[address] [place], [place] 1313208-04-2025 09:01-0400 Systolic blood mm[Hg]Manuela Aichholz Work Phone: 1(856)[address]07-28-2025 11:25-0400 Body uhwzxv975.56 cmLisa Aichholz Work Phone: [phone])[address]07-28-2025 11:25-0400 Body mass index (BMI) [Ratio]26.6 kg/m2Lisa Aichholz Work Phone: [phone]07-28-2025 11:25-0400 Body bifpki46.3 kgLisa Aichholz Work Phone: [phone])[address]01-14-2025 12:22-0500 Diastolic blood vjeryugl43 mm[Hg]Manuela Aichholz Work Phone: 1(571)090-[address] [place], [place] 1313201-14-2025 12:22-0500 Heart rate82 /minLisa Aichholz Work Phone: 1(818)612-[address] [place], [place] 1313201-14-2025 12:22-0500 Respiratory rate16 /minLisa Aichholz Work Phone: 1(178)990-[address] [place], [place] 1313201-14-2025 12:22-0500 SaO2% (BldA) [Mass fraction]100 %Manuela Aichholz Work Phone: 1(363)645-[address] [place], [place] 1313201-14-2025 12:22-0500 Systolic blood ozwatibv169 mm[Hg]Manuela Phamholz Work Phone: 1([phone])150-[address] [place], [place] 1313201-14-2025 10:53-0500 Body .83 Marlin Nathholz Work Phone: 1(333)[address]01-14-2025 10:53-0500 Body kybcqm39.94 kgLisa Phamholz Work Phone: 1(468)[address]11-13-2024 09:00-0500 Body dybbwh093.1 Marlin Nathholz LABOR RELATIONS OFFICER Work Phone: 1([phone])[facility]-[address] [place], [place] [address]Muqzwltzlj90-70-5914 09:00-0500Body mass index (BMI) [Ratio]26.66 kg/m2Katalinasa Phamholz LABOR RELATIONS OFFICER Work Phone: 1(571)[phone] [place], [place] [address]Rjjnmkhply15-32-9234 09:00-0500Body temperature 98.71 [degF]Manuela Brinaz [employer]OR RELATIONS OFFICER Work Phone: [phone] [place], [place] [address]Ljxjzbbhjw45-50-9364 09:00-0500Body bethvu70.67 kgManuela Nathholz LABOR RELATIONS OFFICER Work Phone: [facility] HealthDighqealdi57-20-3900 09:00-0500Diastolic blood yjsvylli37 mm[Hg]Manuela Moonchinaz LABOR RELATIONS OFFICER Work Phone: [facility] HealthXeznpuohug01-79-0336 09:00-0500Heart vtob001 /min Manuela Brinaz LABOR RELATIONS OFFICER Work Phone: [phone] [address]Jvatuxzxoo80-68-7032 09:00-0500Respiratory rate18 /minLisa Nathsharz LABOR RELATIONS OFFICER Work Phone: [place] [address]Wxpalojgwm71-35-2417 09:00-0270CuA3% (BldA) [Mass fraction]100 %Manuela Brinaz LABOR RELATIONS OFFICER Work Phone: [place] [address]Pikokcwved56-58-0069 09:00-0500Systolic blood ytrejzzy768 mm[Hg]Manuela Jairo LABOR RELATIONS OFFICER Work Phone: [phone] [place], [place] [address]Zdqbcbldek55-20-8392 08:10-0400Diastolic blood vbqrminb45 mm[Hg]Balta Zumbar [address] [place], [place] [address]2011-03-2022 08:10-0400Heart rate83 /minZachary Zumbar [address] [place], [place] [address]2011-03-2022 08:10-0400Mean blood bwglribx917 mm[Hg]Balta Zumbar [address]11-03-2022 08:10-0400 Respiratory rate18 /minZachary Zumbar [address]11-03-2022 08:10-0400 Systolic blood zjmyzzha453 mm[Hg]Balta Zumbar [address] [place], [place] [address]2008-10-2022 11:49-0400 Diastolic blood mm[Hg]Balta Zumbar [address] [place], [place] 5015008-10-2022 11:49-0400Heart rate74 /minZachary Zumbar [address] [place], [place] 1172008-10-2022 11:49-0400Mean blood jyqmoaia674 mm[Hg]Balta Zumbar [address] [place], [place] [address]2008-10-2022 11:49-0400 Systolic blood tuhgopnq671 mm[Hg]Balta Zumbar [address] [place], [place] [address]2008-10-2022 11:49-0400 Respiratory rate16 /minZachary Zumbar [address] [place], [place] 5015008-10-2022 11:49-0554AkN2% (BldA) [Mass fraction]96 %Balta Zumbar [address] [place], [place] [address]2008-10-2022 11:40-0400 Diastolic blood brhvyeyw58 mm[Hg]Balta Zumbar [address] [place], [place] 1172008-10-2022 11:40-0400Heart rate76 /minZachary Zumbar [address] [place], [place] 0211908-10-2022 11:40-0400 Respiratory rate12 /minZachary Zumbar [address] [place], [place] 5015008-10-2022 11:40-4214BcT0% (BldA) [Mass fraction]98 %Balta Zumbar [address] [place], [place] 5015008-10-2022 11:40-0400 Systolic blood fqlzahqe422 mm[Hg]Balta Zumbar [address] [place], [place] 5015008-10-2022 10:44-0400Body ranmlnoatbv42.06 [degF]Balta Zumbar [address] [place], [place] 5015008-10-2022 10:44-0400 Diastolic blood rreciiag859 mm[Hg]Balta Zumbar [address] [place], [place] 5015008-10-2022 10:44-0400Heart rate58 /minZachary Zumbar [address] [place], [place] 5015008-10-2022 10:44-0400Mean blood giewtrdo804 mm[Hg]Balta Zumbar [address] [place], [place] 5015008-10-2022 10:44-0400 Respiratory rate12 /minZachary Zumbar [address] [place], [place] 0211908-10-2022 10:44-0595AwO1% (BldA) [Mass fraction]96 %Balta Zumbar [address] [place], [place] 5015008-10-2022 10:44-0400 Systolic blood mm[Hg]Balta Zumbar [address] [place] [address] Encounters Encounter DateEncounter TypeCare ProviderFacilityStart: 03-11-2025 End: 24-39-6417ckuvzdsgooNuxf J Aichholz Work Phone: [facility] Work Phone: Start: 03-11-2025 End: 45-99-6678Ixspuzd encounter procedureJackie Ross ABORIGINAL EDUCATION WORKER COORDINATOR OPERATIONS MANAGER STATION-[facility] Work Phone: Start: 03-04-2025 End: 20-37-4928Jqxryfnox Result EncounterGeneric External Data ProviderNOMS External Department UnsolicitedStart: 03-04-2025 End: 70-81-6887Qzzkspdej Result EncounterGeneric External Data ProviderNOMS External Department UnsolicitedStart: 03-04-2025 End: 75-71-8894wnfmdiwbvnJovt J Aichholz Work Phone: [facility] Work Phone: Start: 03-04-2025 End: 29-08-8155Ziylfws encounter procedureDeo Goldman DO-[facility] Work Phone: Start: 74-66-7371Elxvekm encounter procedureDeo Goldman DO-XRay Jamal OrthoStart: 42-68-3527lkglmtctdvGktwmw A Kelley [facility]: 12-11-2024 End: 12-18-9396WiajlvPjon Aichholz LABOR RELATIONS OFFICER Work Phone: noms CWM FMComment on above:Primary hypertension (CMS/HCC); Anxiety and depression (CMS/HCC); Gastroesophageal reflux disease without esophagitisStart: 10-03-2024 End: 56-45-4529Hekosriwr Result EncounterGeneric External Data ProviderNOMS External Department UnsolicitedStart: 10-03-2024 End: 72-58-1908Cvmcdraij Result EncounterGeneric External Data ProviderNOMS External Department UnsolicitedStart: 96-44-4645Wmy-patient / Non-visitLisa Jairo Work Phone: [facility] Work Phone: Start: 08-21-2024 End: 38-49-0322Axjuotoey to same day surgery centerLisa Nathholz Work Phone: [facility] Work Phone: Start: 08-21-2024 End: 17-10-5978oxgtznzgkzPcmk J Phamholz Work Phone: [facility] Work Phone: Start: 27-15-3216Usm-patient / Non-visitLisa Moonhholz Work Phone: [facility] Work Phone: Start: 06-20-2024 End: 27-51-8680Iwtphy flowsheetLisa Aichholz LABOR RELATIONS OFFICER Work Phone: noms CWM FMStart: 06-20-2024 End: 56-70-6820Nvtsbc flowsheetLisa Saraihholz LABOR RELATIONS OFFICER Work Phone: [facility] CWM FMStart: 06-20-2024 End: 82-39-9663Srrvmc outpatient visit 25 minutesLisa Nathholz LABOR RELATIONS OFFICER Work Phone: noms CWM FMComment on above:Gastroesophageal reflux disease without esophagitis (Primary Dx); Overweight (BMI 25.0-29.9); Primary hypertension (CMS/HCC); Anxiety and depression (CMS/HCC); Hiatal hernia; Colon cancer screening; Menopausal and female climacteric statesStart: 06-20-2024 End: 22-38-7170nywblfouipTYIZ AICHHOLZNot AvailableStart: 04-14-2024 End: 16-36-0504HbysvxCgjy Aichholz LABOR RELATIONS OFFICER Work Phone: noms CWM FMComment on above:Primary hypertension (CMS/HCC)Start: 01-12-2024 End: 36-94-7770wufhfyzbjiFFAY AICHHOLZNot AvailableStart: 08-29-2023 End: 64-43-3354kusggxtlhyOIHMW A PETITTINot AvailableStart: 07-07-2022 End: 98-17-9720hqnajcytcdXGH MANUELA GILLFacility:T5Zbglb: 60-42-8727Jisouyiml for preprocedural laboratory examinationPETER D [facility] Start: 06-17-2022 End: 57-15-8457wykcgqlncuBQFFS D [facility]ENTERFacility:K4Ohihe: 06-14-2022 End: 77-79-0369rjjnyxssckOAUJV D [facility] Centercility:Y6Ynlrs: 06-14-2022 End: 57-00-9920Ozxmxdpwd for preprocedural laboratory examinationPETER D [facility] Centercility:K2Zomzu: 06-10-2022 End: 90-30-6416metawsxjdoZT Balta ZumbarFacility:FTMCStart: 06-10-2022 End: 62-23-2611Knnb ManagementZachary Zumbar [facility] Start: 84-82-4573Vnxroincc for preprocedural cardiovascular examinationPETER D [facility] Centertart: 73-61-9469Byxcbnfjz for preprocedural laboratory examinationPETER D [facility] HospitalStart: 06-03-2022 End: 43-82-9282fajrxmqjfiEN DOCTOR MISCFacility:W8Mvyya: 06-03-2022 End: 42-86-3324Ssrivdown for preprocedural cardiovascular examinationDR DOCTOR MISCFacility:N2Gztuy: 57-13-2648oiqfjvkblaRC DOCTOR MISCFacility:O9Awloa: 03-17-2022 End: 54-75-1115iprpnsozajQwmldnj ZumbarFacility:FTMCStart: 03-17-2022 End: 60-84-2952Zqmg ManagementZachary Zumbar [facility] Start: 02-04-2022 End: 92-79-0947dymqoaebyyGBPW NONEFacility:FTMCStart: 12-10-2021 End: 94-84-7150yhuzyikjurNROKCPUK EBERLYFacility:FTMCStart: 12-04-2021 End: 59-39-7987epthdgcylkRA Balta ZumbarFacility:FTMCStart: 12-04-2021 End: 75-93-4121Aphngnu encounter procedureZamorgan [facility] Bernardo [facility] Start: 10-22-2021 End: 31-77-7411ldfippfsauVLCBHKVE EBERLYFacility:FTMCStart: 09-24-2021 End: 38-98-3129ldkwvtlskxVFMOSMVM EBERLYFacility:W7Lixzv: 08-21-2021 End: 41-91-4792gilfhjzzzpXMLNOFOL EBERLYFacility:P5Qsyqu: 08-14-2021 End: 16-74-0245gyatheoesvHAGSHTRB EBERLYFacility:L6Rlhys: 03-24-2017 End: 04-52-0392Tmfueytfg department patient visitSelect [facility] Procedures DateProcedureProcedure DetailPerforming ClinicianStart: 13-01-7257Epiws hand minimum 3 viewsGeneric External Data ProviderStart: 13-69-0856NF TOMOSYNTHESIS SCREENING BIGeneric External Data ProviderStart: 95-08-9093FtcqjqrmuenGirmotd ProviderStart: 07-14-0134TyzlonbzffhrnelainpytwrqemDnrt Aichholz Work Phone: Start: 99-40-4742WbhpzlukztqYhyehjf ProviderStart: 75-56-0148Zvncivphzfg observation [Identifier] in Cervix by Cyto stainManuela Gill NP Work Phone: Start: 92-64-5839Hrqyrkkdd of nerve root of lumbar spine using fluoroscopic guidanceBalta Zumbar comment on above:L4+L5 98% reliefStart: 77-27-7768Jx thoracic spine w/o contrast materialStart: 67-72-5336Ei cervical spine w/o contrast materialStart: 07-58-3716Eq head/brain w/o contrast materialGenus Meniscus (organism)Balta Chang comment on above:Right 2009Pain of right temporomandibular joint (finding)Balta Chang comment on above:2000Swelling of first metatarsophalangeal joint of hallux (disorder)Balta Chang comment on above:1996 Plan of Treatment DateCare ActivityDetailAuthorStart: 05-78-0538Qbxlbwygg for malignant neoplasm of colonNOMS HealthcareStart: 11-79-2253Gjfyuxmds for malignant neoplasm of cervixNOMS HealthcareStart: 05-54-9304Rijsencyd for malignant neoplasm of breast MammogramNOMS HealthcareStart: 68-33-9716Mipxkxdxx for malignant neoplasm of colonColorectal Cancer ScreeningNOMS HealthcareComment on above:Postponed from 1964 (Patient Refused)Start: 26-09-4866Dtmmmdycv vaccinationNOMS HealthcareStart: 03-18-2025 End: 65-36-6693Qtmjejs encounter vqxiajsje44/11/2025 9:30 AM EDT Office Visit NOMBetty [facility] [address] [place] [address] Manuela Gill, FATIMAH [address] [place] [address] NOMS MAKI FMStart: 53-53-1981PdyvcszobChillicothe Hospital Start: 08-20-2024 End: 81-49-9590Tldcaaz encounter vurutytam38/13/2025 8:40 AM EST Office Visit NOMBetty [facility] [address] [place] [address] Manuela Gill, LABOR RELATIONS OFFICER [address] [place] [address] NOMS CWM FMStart: 06-20-2024 End: 73-34-5080Szylyuu encounter kwozyrkdx12/13/2024 9:00 AM EST Office Visit TIARA [facility] [address] [place] [address] Manuela Gill, LABOR RELATIONS OFFICER [address] [place] [address] TIARA GAMBINO FMStart: 51-99-1449Zubtymntf for malignant neoplasm of breastMammogramNOMS HealthcareComment on above:Postponed from 2004 (Other Patient Reasons)Start: 69-76-2016Cuvegfxmo for malignant neoplasm of cervixCervical Cancer ScreeningNOMS HealthcareComment on above:Postponed from 1994 (Other Patient Reasons)Start: 99-19-9569Uxyohyyqt for malignant neoplasm of colonColorectal Cancer ScreeningNOMS HealthcareComment on above: Postponed from 1964 (Other Patient Reasons)Start: 46-16-0435Hzhblfivr vaccinationInfluenza Vaccine (#1)[facility] HealthcareStart: 02-68-4311Tfdhiizvm for malignant neoplasm of breastMammogramNOMS HealthcareStart: 93-69-3914Ojczlfcpv for malignant neoplasm of cervixHPV/CotestNOMS HealthcareStart: 1985 Screening for malignant neoplasm of cervixPap SmearNOMS HealthcareStart: 66-04-3241Xczeugver for malignant neoplasm of colonNOMS HealthcareComprehensive metabolic 2000 panel - Serum or PlasmaChillicothe HospitalPatient EducationColon polyps Diverticulosis Know your [facility] Work Phone: [facility] Payers DatePayer CategoryPayerPolicy [id number] Care HMO (unspecified) [id number] Health [id number]'s Compensation [id number] 2.16840.1.425689.3.57[id number] 2.16840.1.745919.3.57[id number] 2.840.1.855475.3.57[id number] 2.840.1.683754.3.579.2.[id number] 2.840.1.334318.3.57[id number] 2.0.1.396353.3.579.[id number] 2.840.1.758178.3.57[id number] 2.840.1.242693.3.579.[id number] 2.840.1.396785.3.579.[id number] 2.840.1.116769.3.57[id number] 2.840.1.547009.3.57[id number] 2.840.1.483754.3.57[id number] 2.16.840.1.744972.3.57[id number] 2..840.1.819467.3.57[id number] 2.16.840.1.171013.3.579.[id number] 2..840.1.356845.3.57[id number] 2.16.840.1.926381.3.579.2.083091-44-5781VqpzujuJDP258J1917387-84-5063Tjdaptq 20-70-7431Rlgdmp's [id number] 2.16.840.1.9[id number] 2.0.1.370367.3.579.2.531 Social History DateTypeDetailFacilityTobacco smoking statusNever smokerMount St. Mary Hospitaltart: 01-12-2024 End: 16-61-7038Ytr Assigned At BirthFemalOhioHealth Dublin Methodist HospitalTobacco smoking statusNo Smoking Status EnteredOhiohealthTobadeaconess hospital [facility] smoking statusNo Smoking Status EnteredMount St. Mary Hospitaltart: 09-03-2023 End: 42-77-1287Sclzzvp smoking status NHISNever smoked tobaccoNOMS Healthcare Start: 21-39-7599Ddjxggf use and exposureSmokeless tobacco non-userNOMS HealthcareStart: 01-12-2024 End: 79-22-8246Wtjrbrblx beverage intakeLifetime non-drinker (finding)NOMS HealthcareStart: 01-12-2024 End: 88-45-8701Yyxtoyw of Social functionNOMS HealthcareStart: 71-96-4971Ztwrlyv Commentcaffeine more than 4 cupsNOMS HealthcareStart: 19-42-2556Yyz assigned at birthNot on fileNOMS HealthcareStart: 97-29-6213ZatRpzibi (finding)[facility]art: 94-49-3632Jmk Assigned At [facility] Goals DatePatient GoalDesired Activity/State Functional Status TtexXyijaejfdgMqxrhwIxsabhdy46-60-1605Vbageexzqs StatusN/[facility]08-10-2022Functional StatusN/[facility] Clinical Notes 08-14-2021 to 03-04-2025 Note Date & BwlcNxrhWvmmklck68-68-7408 Evaluation note* Diagnosis Onset Date Resolution Status Admit Date 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 acuteJuly 2024 11:05amAnxiety and depressionacuteAugust 2024 9:00am HTN (hypertension)acuteAugust 2024 9:00am [facility] Work Phone: 1(413) 566-699801-14-2025 [place] [address] Colonoscopy Procedure Report Signed Patient: Cherelle Tuttle MR#: [id number] 44 : 1965 Acct:[id number] Age/Sex: 59 / F Adm Date: 5 Loc: Room: Type: [facility] Attending Dr: Renetta Nance DO Copies to: DO Manuela Manzo NP-C~ Colonoscopy Date/Provider 08/21/2024 Renetta Nance DO Narrative Procedure: Colonoscopy with jumbo forceps polypectomy Indication: Screening for colon cancer. No prior colonoscopy Pre-operative diagnosis: Screening for colon cancer. Post-operative diagnosis: one polyp removed, diverticulosis in the right colon, small internal hemorrhoids, otherwise normal colon and TI Sedation: propofol per anesthesia dept O2 oximetry, hemodynamic monitoring was performed pre, during, and post procedure. Patient was identified, H&P completed, patient was given full explanation of the procedure as well as associatedrisks and written consent wasobtained prior to procedure. Patient expressed complete understanding of the procedure as well as alternatives to the procedure and to anesthesia and agreed to proceed with the procedure as indicated. Patient was immediately reassessed prior to IV sedation. Under IV sedation, patient was placed in the left lateral decubitus position. Digital rectal exam was performed and normal. Colonoscope was inserted and passed proximally to the cecum, which was identified by the ileocecal valve, appendiceal orifice and cecal floor. The terminal ileum was intubatedand examined colonoscope was slowly withdrawn with the findings as below. [place] bowel prep score was good. Findings: Terminal ileum: Normal Cecum: one diverticulum Ascending colon: Normal. Hepatic flexure: Normal. Transverse colon: 5 mm sessile polyp removed with jumbo forceps and sent to pathology. Splenic flexure: Normal. Descending colon: Normal. Sigmoid colon: Normal. Rectum: Normal. Retroflexed views: Rectum did show small internal hemorrhoids. Biopsy taken: Yes Complications: None EBL: Minimal Recommendations: -Repeat colonoscopy in 5 years -Follow up pathology -Fiber rich diet -Follow up in the office as needed -Follow up with PCP Following a period of recovery, patient was seen and given full explanation of the procedure. Patient tolerated the procedure well and will be discharged in satisfactory, stable condition. Renetta Nance DO Documented By: Renetta Nance DO 08/21/24 1115 Signed By: 08/21/24 1149 [facility]01-14-2025 [place] [address] EGD Procedure Note Signed Patient: Cherelle Tuttle MR#: [id number] 44 : 1965 Acct:[id number] Age/Sex: 59 / F Adm Date: 5 Loc: Room: Type: [facility] Attending Dr: Renetta Nance DO Copies to: DO Manuela Manzo NP-C~ Esophagogastroduodenoscopy Date/Provider Date: 08/21/2024 Renetta Nance DO Narrative Narrative: Procedure: EGD with biopsy Indication: GERD Pre-operative diagnosis: GERD Post-operative diagnosis: Normal EGD s/p small bowel and gastric biopsies obtained Sedation: propofol per anesthesia dept O2 oximetry, hemodynamic monitoring was performed pre, during, and post procedure. Patient was identified, H&P completed, patient was given full explanation of the procedure as well as associatedrisks and written consent wasobtained prior to procedure. Patient expressed complete understanding of the procedure as well as alternatives to the procedure and to anesthesia and agreed to proceed with the procedure as indicated. Patient was immediately reassessed prior to IV sedation. Following IV sedation, patient was placed in the left lateral decubitus position. Bite block was inserted. Endoscope was passed through the mouth, into the esophagus. Endoscope was advanced into the stomach through the pyloricchannel and into the 2nd portion of duodenum by direct visualization. Endoscopewas withdrawn into the stomach and retroflexion was performed. The endoscope was straightened,the stomach was decompressed. Endoscope was withdrawn into the esophagus then completely removed with the findings as below. Findings: DUODENUM: The bulb and descending portion appeared normal. Biopsies were obtained from the small bowel for histology and to rule out Celiac disease. STOMACH: The pyloric channel, antrum, body, fundus and cardia, including retroflexed views appear normal. Biopsies were obtained from the gastric antrumand body for histology and to rule out H. Pylori. ESOPHAGUS: GE junction (upper margin of gastric folds) was at 37 cm from incisors. Mucosa appeared normal. Biopsy taken: Yes Complications: None EBL: Minimal Recommendations: -Follow up pathology -Resume normal diet -Lifestyle modifications for GERD -Follow up in the office if symptoms persist -Repeat EGD as needed only -Follow up with PCP Following a period of recovery, patient was seen and given full explanation of the procedure. Patient tolerated the procedure well and will be discharged in satisfactory, stable condition. Renetta Nance DO Documented By: Renetta Nance DO 08/21/24 1115 Signed By: 08/21/24 1130 [facility]01-14-2025 [place] [address] Gastroenterology H&P Signed Patient: Cherelle Tuttle MR#: [id number] 44 : 1965 Acct:[id number] Age/Sex: 59 / F Adm Date: 5 Loc: Room: Type: [facility] Attending Dr: Renetta Nance DO Copies to: DO Manuela Manzo NP-C~ Date of Service: 08/21/2024 HISTORY & PHYSICAL: Patient's history with special attention to the cardiovascular, pulmonary systems and the current problem was reviewed with the patient immediately prior to the procedure. Present medications and doses reviewed in the EMR. Allergies and pertinent laboratory tests were also re viewedat this time in the EMR. The physical examination, as below, was then performed. Indication, assessment and HPI: 59-year-old female who presents for EGD and colonoscopy for GERD and screening for colon cancer. No prior Colonoscopy. Herlast EGD was many yrs ago. She does have chronic constipation at baseline. Has tried PPI in the past. Family history of GI malignancy? No PHYSICAL EXAMINATION General appearance: cooperative, NAD Skin: No jaundice, no rash or lesions Head: NCAT Eyes: Anicteric Neck: Supple Lungs: Normal respiratory effort, no use of accessory muscles Abdomen: Soft, nondistended Neuro: No focal deficits, Ox3. REVIEW OF SYSTEMS Constitutional: Denies malaise, fevers Cardiovascular: Denies chest pain, palpitations Respiratory: Denies shortness of breath, wheezing Gastrointestinal: As per HPI Genitourinary: Denies dysuria, polyuria Musculoskeletal: Denies joint swelling, joint stiffness Neurological: Denies confusion, numbness, tingling Endocrine: Denies fatigue Written informed consent obtained from the patient. Risks (including but not limited to perforation, infection, bloating, bleeding, need for emergent surgeryand loss of life), benefits and alternatives explained and questions answered. The patient verbalized understanding. Based on history patient is an appropriate candidate for the procedure. Renetta Nance DO Present medication and doses reviewed in the EMR Documented By: Renetta Nance DO 08/21/24 1114 Signed By: 08/21/24 1122 [facility]11-13-2024 History of Present illness Narrative * Manuela Gill NP - 06/20/2024 10:59 AM ESTAssociated Problem(s): Menopausal and female climacteric states Continue with Pilot Manager * Manuela Gill NP - 06/20/2024 10:59 AM ESTAssociated Problem(s): Anxiety and depression (CMS/HCC) No changes in meds * Manuela Gill NP - 06/20/2024 10:58 AM ESTAssociated Problem(s): Colon cancer screening Cannot get done until next year, we will include this on the order for GI, as it can be set up whenpt determines it is best * Manuela Gill NP - 06/20/2024 10:57 AM ESTAssociated Problem(s): Hiatal hernia Refer to GI and increase PPI * Manuela Gill NP - 06/20/2024 10:56 AM ESTAssociated Problem(s): Gastroesophageal reflux disease without esophagitis Recommendations: freq small meals, nothing to eat or drink at least 2 hours prior to bed, limit caffeine, alcohol, as well as spicy foods Meds to limit or avoid if possible: NSAIDS Elevate HOB if possible Will increase her dose of Omeprazole from 20mg daily to 40mg daily Fu in 6 weeks for recheck Will also refer to gastro * Manuela Gill NP - 06/20/2024 10:55 AM ESTAssociated Problem(s): Primary hypertension (CMS/HCC) No dose changes Will continue to monitor UTD on her labs as well Refills provided * NADINE EMERSON - 06/20/2024 9:00 AM EST * Manuela Gill NP - 06/20/2024 9:00 AM EST Images from the original note were not included. Cherelle Tuttle is a 59 y.o. female presents with chief complaint of No chief complaint on file. HPI: Here today with complaints GERD GERD She complains of abdominal pain (epigastric), dysphagia, early satiety, heartburn and nausea. She reports no belching, no chest pain, no choking, no coughing, no globus sensation, no hoarse voice, nosore throat, no stridor, no tooth decay, no water brash or no wheezing. This is a chronic problem. The current episode started more than 1 year ago. The problem occurs constantly. The problem has been rapidly worsening. The heartburn duration is more than one hour. The heartburn is located in the substernum. The heartburn is of severe intensity. The heartburn wakes her from sleep. The heartburn limits her activity. The heartburn changes with position. The symptoms are aggravated by lying down. Associated symptoms include fatigue. Pertinent negatives include no anemia. Risk factors include hiatal hernia. She has tried a PPI for the symptoms. The treatment provided mild relief. Past procedures include an EGD. SUBJECTIVE: MEDICATIONS: Current Outpatient Medications Medication Instructions aspirin 81 mg, Daily cholecalciferol (VITAMIN D-3) 25 mcg, Daily estradiol (Estrace) 0.1 MG/GM vaginal cream Apply a pea sized amount daily to external areas discussed estradiol-norethindrone (ActivElla) 1-0.5 MG tablet 1 tablet, Daily hydroCHLOROthiazide (HYDRODIURIL) 25 mg, Oral, Daily lamoTRIgine (LAMICTAL) 25 mg, Oral, 2 times daily omeprazole (PRILOSEC) 40 mg, Oral, Daily before breakfast, Do not crush or chew. ALLERGIES: Allergies Allergen Reactions Amlodipine Other Reaction(s): Unknown Escitalopram Other Reaction(s): Unknown Fluoxetine Unknown Fluticasone-Salmeterol Other Reaction(s): Unknown Food Gabapentin Dizziness Lisinopril Other Reaction(s): Unknown Naproxen Other Reaction(s): Unknown Paroxetine Other Reaction(s): Unknown Red Dye #40 (Allura Red) Other Sulfa Antibiotics GI intolerance Other Reaction(s): nausea, Onset Date: 2007-08-15;, Unknown Sulfasalazine Wound Dressing Adhesive Other REVIEW OF SYMPTOMS: Review of Systems Constitutional: Positive for fatigue. Negative for appetite change, chills and fever. HENT: Negative for congestion, ear pain, hoarse voice and sore throat. Eyes: Negative for pain, discharge, redness and visual disturbance. Respiratory: Negative for cough, choking, shortness of breath and wheezing. Cardiovascular: Negative for chest pain, palpitations and leg swelling. Gastrointestinal: Positive for abdominal pain (epigastric), dysphagia, heartburn and nausea. Negative for blood in stool, constipation, diarrhea and vomiting. Genitourinary: Negative for difficulty urinating, dysuria and frequency. Musculoskeletal: Negative for arthralgias, back pain, joint swelling and myalgias. Skin: Negative for rash and wound. Neurological: Negative for dizziness, tremors, seizures, syncope and headaches. Psychiatric/Behavioral: Negative for behavioral problems, self-injury and suicidal ideas. The patient is nervous/anxious. Depression Hematological: Does not bruise/bleed easily. Endocrine: Negative for polydipsia, polyphagia and polyuria. Allergic/Immunologic: Negative for environmental allergies and food allergies. PAST MEDICAL HISTORY Past Medical History: Diagnosis Date Anxiety and depression ([facility]) 07/12/2023 Hypertension ([facility]) Primary hypertension ([facility]) 07/12/2023 Raynauds syndrome Past Surgical History: Procedure Laterality Date BUNIONECTOMY KNEE SURGERY Left TONSILLECTOMY family history includes Stroke in her mother. OBJECTIVE: Visit Vitals BP 138/88 (BP Location: Left arm, Patient Position: Sitting, BP Cuff Size: Adult long) Pulse 102 Temp 98.7 F (Temporal) Resp 18 Ht 5' 5 Wt 160 lb 3.2 oz SpO2 100% BMI 26.66 kg/m Smoking Status Never BSA 1.83 m Physical Exam Vitals and nursing note reviewed. Constitutional: General: She is not in acute distress. Appearance: Normal appearance. HENT: Head: Normocephalic and atraumatic. Right Ear: External ear normal. Left Ear: External ear normal. Nose: Nose normal. Mouth/Throat: Mouth: Mucous membranes are moist. Pharynx: No oropharyngeal exudate or posterior oropharyngeal erythema. Eyes: Extraocular Movements: Extraocular movements intact. Conjunctiva/sclera: Conjunctivae normal. Cardiovascular: Rate and Rhythm: Normal rate and regular rhythm. Pulses: Normal pulses. Heart sounds: Normal heart sounds. Pulmonary: Effort: Pulmonary effort is normal. Breath sounds: Normal breath sounds. No wheezing. Abdominal: General: Bowel sounds are normal. There is no distension. Palpations: Abdomen is soft. There is no mass. Tenderness: There is no abdominal tenderness (epigastric region). Musculoskeletal: General: Normal range of motion. Cervical back: Normal range of motion and neck supple. Skin: General: Skin is warm and dry. Capillary Refill: Capillary refill takes 2 to 3 seconds. Findings: No rash. Neurological: General: No focal deficit present. Mental Status: She is alert and oriented to person, place, and time. Psychiatric: Thought Content: Thought content normal. Judgment: Judgment normal. Comments: Tearful, anxious when discussing her feelings regarding the my chart issues, her chronic GERD symptoms and just feeling overwhelmed ASSESSMENT AND PLAN: Follow up in about 2 months (around 08/20/2024) for Recheck. Problem List Items Addressed This Visit Anxiety and depression (CMS/HCC) No changes in meds Relevant Medications lamoTRIgine (LaMICtal) 25 MG tablet Primary hypertension (CMS/HCC) No dose changes Will continue to monitor UTD on her labs as well Refills provided Relevant Medications hydroCHLOROthiazide (HYDRODiuril) 25 MG tablet Menopausal and female climacteric states Continue with [employer] Overweight (BMI 25.0-29.9) Gastroesophageal reflux disease without esophagitis - Primary Recommendations: freq small meals, nothing to eat or drink at least 2 hours prior to bed, limit caffeine, alcohol, as well as spicy foods Meds to limit or avoid if possible: NSAIDS Elevate HOB if possible Will increase her dose of Omeprazole from 20mg daily to 40mg daily Fu in 6 weeks for recheck Will also refer to gastro Relevant Medications omeprazole (PriLOSEC) [address] capsule Other Relevant Orders Ambulatory referral to Gastroenterology Hiatal hernia Refer to GI and increase PPI Relevant Orders Ambulatory referral to Gastroenterology Colon cancer screening Cannot get done until next year, we will include this on the order for GI, as it can be set up whenpt determines it is best Relevant Orders Ambulatory referral to Gastroenterology documented in this encounterCarondelet [id number] Instructions* Patient Instructions* Manuela Gill NP - 06/20/2024 9:00 AM EST Start taking Omeprazole 40mg daily in the morning Will refer to Gastro enterology Recommendations: freq small meals, nothing to eat or drink at least 2 hours prior to bed, limit caffeine, alcohol, as well as spicy foods Meds to limit or avoid if possible: NSAIDS Elevate HOB if possible documented in this encounterCarondelet [id number] NoteHOSPITAL REGULATIONS: All Positive and Important Negative Findings Shall Be Recorded Date of Consultation: 06/10/2022 Attending Physician: Kary Wright NP Consulting Physician: Balta Chang M.D. CHIEF COMPLAINT:Low back, left leg pain. HISTORY OF PRESENT ILLNESS: This is a 57 year old female seen for a chief complaint of low back andleft leg pain. She rates her symptoms currently as a 2- 3/10. She describes it as an aching sensation. At her last visit 3 months ago she underwent a left L4 and L5 transforaminal epidural steroid injection. She reports 98% relief in terms of improved pain and function. She is doing much better. Shestill has a little bit of pain in the distal leg but the pain along with the strength is markedly improved. She has been using Lyrica 25 mg at bedtime. She states it helps a little bit but it still makes her too drowsy to take during the day. She denies new neurologic symptoms or issues with bladder or bowel control. PAST MEDICAL, PSYCHOSOCIAL, FAMILY HISTORY, ALONG WITH MEDICATIONS AND ALLERGIES is available and was reviewed. PHYSICAL EXAMINATION: General: She is a pleasant white female. Vital signs: Vital signs including blood pressure, heart rate and respirations are stable. Head: Head is normocephalic and external ears are normal. Neck: Neck is supple with no lesions. Cardiovascular: No signs of poor perfusion. No peripheral edema. Lungs: Breathing is unlabored. There is no wheezing present. Abdomen: Abdomen is soft and non-distended. Back: There is no lumbar tenderness. Musculoskeletal: Strength is 5/5. Muscle tone is normal. Neurologic: Sensation is intact throughout. Her reflexes are normal and symmetric. Psychiatric: Affect is appropriate and she is alert and oriented. ASSESSMENT:This is a 57 year old female seen for a chief complaint of low back and left leg pain. Her signs and symptoms are consistent with lumbosacral radiculopathy, lumbosacral spondylosis. She has had excellent response to the transforaminal epidural injection. I reviewed an [place] [employer] Prescription Reporting System report on her which is appropriate. Incidentally she also mentioned that she has had persistent tinnitus and has been evaluated by ENT. She questions whether she should see aneurologist. PLAN:I addressed options with her and we will continue the low dose Lyrica for now and I will try supplementing that with 10 mg of Nortriptyline. She was counseled with regard to side effects. I advised her that as long as she is doing well we could hold off but we could repeat a left L4 and L5 transforaminal epidural steroid injection in the future if or when needed. I advised her to continue with the physical therapy exercises as well. I also offered her a neurology referral for the tinnitus but she declined at this time. If she changes her mind she is going to let us know. I will see her for follow up in 3 months or sooner if needed. Over 30 minutes was spent caring for the patient in TOTAL. Bushra Martinez Dictated: 06/10/2022 [id number] Transcribed: 06/10/2022 cc:Kary Wright NPSamaritan HospitalComment on above:Result Comment: Electronically Signed By: Balta Chang MD\.br\Date and Time Signed: 06/23/22 17:05 [id number] Note [id number]:127[facility] 02-11-2022 NoteHOSPITAL REGULATIONS: All Positive and Important Negative Findings Shall Be Recorded Date of Consultation: 02/04/2022 Attending Physician: Kary Wright NP Consulting Physician: Balta Chang M.D. CHIEF COMPLAINT: Low back and left leg pain. HISTORY OF PRESENT ILLNESS: This is a 56-year-old female seen for a chief complaint of low back andleft leg pain. She rates her symptoms as a 4/10 at rest and a 7/10 with activity. She reports that the pain is still starting in the left lower back and buttock and radiating down the front and side of the left thigh into the medial and lateral aspects of the left leg below the knee. She will get numbness and tingling in the toes. She denies any right-sided symptoms. She reports the Lyrica is helping a little bit it makes her too drowsy to take during the day. She got the MRI that we had ordered and is here to go over the results. Her past medical, social, family history along with medications and allergies is available and was reviewed. PHYSICAL EXAMINATION: General: She is a pleasant white female. Vital signs including blood pressure, heart rate and respirations are stable. Head: Head is normocephalic and external ears are normal. Neck: Neck is supple with no lesions. Cardiovascular: No signs of poor perfusion, no peripheral edema. Respiratory: Breathing is unlabored. There is no wheezing present. Abdomen: Abdomen is soft, nondistended. Back: There is left-sided lumbar paraspinal tenderness. Musculoskeletal: Strength is 5/5 with the exception of 4/5 with dorsiflexion of the left foot. She has a positive straight leg raise on the left side. Neurologic: Sensation is intact throughout. She reflexes are normal and symmetric. Psychiatric: Affect is appropriate. She is alert and oriented. ASSESSMENT: This is a 56-year-old female seen for a chief complaint of left leg pain. Her signs andsymptoms are consistent with lumbosacral radiculopathy and lumbosacral spondylosis. I reviewed her lumbar MRI which was notable for some left-sided neural foraminal stenosis at L4-L5 as well as some facet arthropathy at L3-L4 and L4-L5. PLAN: I addressed options with her and she has had continued radicular symptoms, I am going to haveher retry physical therapy and we will also proceed with a left L4 and L5 transforaminal epidural steroid injection. I went over the pros and cons of this plan and she was in agreement to proceed. I do not think either modality on its own would be enough but my hope would be that the combination would be. She will continue with the Lyrica and we will check a flexion/extension x-ray to make sure there is no instability. I will see her for followup four weeks after the procedure for a repeat evaluation. Balta Chang M.D. ls Dictated: 02/04/2022 [id number] Transcribed: 02/05/2022 cc:Kary Wright CentervilleComment on above:Result Comment: Electronically Signed By: Bernardo SANTANA, Balta\.br\Date and Time Signed: 02/11/22 17:09 [id number] NotePROCEDURE: Synchronized Signa HDXT 1.5 Sagittal T1, T2, STIR and axial T1 and T2 contiguous and cone down images through the lumbar spine were performed without contrast administration. HISTORY: Fall, July 22, 2021, back pain FINDINGS: Normal vertebral alignment. Central end plate depressions, non-acute. No bone marrow edema or vertebral body/pedicle fracture. Normal conus medullaris and filum terminale. T12-L1 through L2-3: Normal. L3-4 and L4-5: Normal disc volume. Mild disc bulging, bilateral facet arthropathy. No spinal canal stenosis. Mild bilateral entry and mid neuroforaminal stenosis. L5-S1: Normal disc volume. No disc herniation, spinal canal or neuroforaminal stenosis. Mild facet arthropathy. IMPRESSION: 1. L3-4 and L4-5 facet arthropathy. Mild to moderate bilateral neuroforaminal stenosis. 2. No significant spinal canal stenosis. Report reported and signed by [employer] on 01/25/2022 [id number]-13-2022 NoteHOSPITAL REGULATIONS: All Positive and Important Negative Findings Shall Be Recorded Date of Consultation: 12/11/2021 Attending Physician: Kary Wright [facility] Consulting Physician: Balta Chang M.D. CHIEF COMPLAINT: Left leg pain. HISTORY OF PRESENT ILLNESS: This is a 56-year-old female seen for a chief complaint of left leg pain. She rates her symptoms as a 5/10 and describes them as an intermittent burning sensation that is worst over the left knee. She does state that she has noticed pain that starts just below her left buttock and will radiate down to the knee and then down into the ankle. She has been doing therapy and reports that her therapist thinks that her issue may be coming from her back. She has also had an electromyogram which showed evidence of this. She tried using Lyrica and reports that it did seem tohelp at night, but she could not tolerate the daytime dosage due to sedation. She denies new neurologic symptoms or issues with bladder or bowel control. Her past medical, social, family history along with medications and allergies is available and was reviewed. PHYSICAL EXAMINATION: General: She is a pleasant white female. Vital signs including blood pressure, heart rate, and respirations are stable. Head: Head is normocephalic and external ears are normal. Neck: Neck is supple with no lesions. Cardiovascular: No signs of poor perfusion, no peripheral edema. Lungs: Breathing is unlabored and there is no wheezing present. Abdomen: Abdomen is soft and nondistended. Back: There is no lumbar tenderness. Musculoskeletal: Strength is 5/5 with the exception of 4/5 with dorsiflexion of the left foot. She has a positive straight leg raise on the left side. Neurologic: Sensation is intact throughout. Her reflexes are normal and symmetric. Psychiatric: Affect is appropriate and she is alert and oriented. ASSESSMENT: This is a 56-year-old female seen for a chief complaint of left leg pain. Her diagnosisis a left knee sprain. I reviewed an [place] [employer] Report on her, which was appropriate. I reviewed the results of her electromyogram which were notable for a left neuropathy. PLAN: I addressed the options with her, and I will have her continue on the Lyrica, but we will do just 25 mg at bedtime. We will also try to get a lumbar x-ray and MRI submitted to work up her symptoms. I went over the pros and cons of this plan, and she was in agreement to proceed. I will see herfor followup after the MRI for repeat evaluation. Balta Chang M.D. ca Dictated: 12/11/2021 [id number] Transcribed: 12/12/2021 cc:Kary Wright CNPSamaritan HospitalComment on above:Result Comment: Electronically Signed By: Balta Chang MD\.br\Date and Time Signed: 12/18/21 08:17 [id number] NoteHOSPITAL REGULATIONS: All Positive and Important Negative Findings Shall Be Recorded Date of Consultation: 10/22/2021 Attending Physician: Kary Wright CNP Consulting Physician: Balta Chang M.D. CHIEF COMPLAINT: Left leg pain. HISTORY OF PRESENT ILLNESS: This is a 56 year old female seen for a chief complaint of left leg pain. She rates her symptoms as a 6-7/10. She describes it as a burning sensation that starts in the left knee and radiates down the lateral side of the leg into the foot. She sustained a work injury where she slipped and fell and has had these symptoms since. She has had a knee magnetic resonance imaging and evaluated by Dr. Henley. He put her on Prednisone which initially seemed to help but then started causing side effects. She has had side effects with numerous medications in the past and notes that she is quite sensitive to mediations. She states in addition to pain she has numbness and tingling in the leg. She has been doing physical therapy and her therapist felt that she may have reflex sympathetic dystrophy. She reports that she had injured her right knee during the same injury but the right knee has recovered without problem. She has tried using a TENS unit which actually made her symptoms worse. she will have hypersensitivity to touch but has not noticed any color change. She denies loss of bladder or bowel control. PAST MEDICAL, PSYCHOSOCIAL, FAMILY HISTORY, ALONG WITH MEDICATIONS AND ALLERGIES is available and was reviewed. REVIEW OF SYSTEMS:Done on ten systems. PHYSICAL EXAMINATION: General: She is a pleasant white female. Vital signs: Vital signs including blood pressure, heart rate and respirations are stable. Head: Head is normocephalic and external ears are normal. Neck: She has no cervical tenderness. Cardiovascular: No signs of poor perfusion. No peripheral edema. Lungs: Breathing is unlabored. There is no wheezing present. Abdomen: Abdomen is soft and non-distended. Musculoskeletal: Strength is 5/5 with the exception of 4/5 with dorsiflexion of the left foot. She has tenderness to light touch over the lateral more so than the medial knee on the left side that extends into the medial bonilla below the knee. Her reflexes are normal and symmetric. Psychiatric: Affect is appropriate and she is alert and oriented. ASSESSMENT:This is a 56 year old female seen for a chief complaint of left leg pain. Her diagnosis is left knee sprain. I reviewed an [employer] Prescription Reporting System report on her which is appropriate. I also reviewed her magnetic resonance imaging and x-rays. PLAN: I addressed options with her and since she was unable to tolerate gabapentin for a previous issue I am going to put her on very low dose Lyrica, specifically 25 mg per day. If she tolerates it we could increase it in the future. With regard to her symptoms I think the pain is neuropathic but I am not yet certain that it quite fits with reflex sympathetic dystrophy. I would like to get a hold of Dr. Henley's notes to see what he thinks and I do think she warrants an electromyogram. We will get that ordered and I will see her for follow up afterward for a repeat evaluation. Balta Chang M.D. lr Dictated: 10/22/2021 [id number] Transcribed: 10/23/2021 cc:*Kary Wright, [facility] HospitalComment on above:Result Comment: Electronically Signed By: Balta Chang MD\.br\Date and Time Signed: 10/27/21 17:24 [id number] NotePROCEDURE: XR KNEE LT 4V or > HISTORY: Sprain of left knee COMPARISON: XR knee left 08/14/2021 FINDINGS: BONES:No fracture, acute abnormality, or significant arthropathy. SOFT TISSUES:No visible soft tissue swelling. EFFUSION:None visible. OTHER: Negative. IMPRESSION: 1. No acute bone abnormality or significant degenerative changes. Electronically authenticated by: NITIN MEYER Date: 2021-09-24 16:31[facility]01-07-2022 NotePROCEDURE: XR KNEE LT 4V or > COMPARISON: None. HISTORY: Sprain of left knee FINDINGS: BONES:No fracture, acute abnormality, or significant arthropathy. SOFT TISSUES:Negative. No visible soft tissue swelling. EFFUSION:None visible. OTHER: Negative. IMPRESSION: No acute abnormality Electronically authenticated by: LINDA OCHOA Date: 2021-08-14 13:11[facility] Future Appointments Appointment Date:12/10/2021 08:45:00 AM Scheduled Provider:Balta Chang [facility] Future Appointments Appointment Date:04/15/2022 03:30:00 PM Scheduled Provider:Balta Chang MD [facility] Future Appointments Appointment Date:09/09/2022 08:00:00 AM Scheduled Provider:Balta Chang MD Location:[facility] App[facility]ment Type:[facility]* Diagnosis Anxiety and depression (CMS/HCC)- Primary Primary hypertension (CMS/HCC) Unspecified essential hypertension Arthralgia of left temporomandibular joint Overweight (BMI 25.0-29.9) Overweight Gastroesophageal reflux disease without esophagitis- Primary Esophageal reflux Overweight (BMI 25.0-29.9) Overweight Primary hypertension (CMS/HCC) Unspecified essential hypertension Anxiety and depression (CMS/HCC) Hiatal hernia Diaphragmatic hernia without mention of obstruction or gangrene Colon cancer screening Special screening for malignant neoplasms, colon Menopausal and female climacteric states documented in this encounter [facility] HealthcareEvaluation note* Diagnosis Primary hypertension (CMS/HCC) Unspecified essential hypertension documented in this encounter [facility] HealthcareEvaluation noteNo assessment information availableKettering Health Work Phone: Evaluation note* Diagnosis Anxiety and depression (CMS/HCC)- Primary Primary hypertension (CMS/HCC) Unspecified essential hypertension Arthralgia of left temporomandibular joint Overweight (BMI 25.0-29.9) Overweight Gastroesophageal reflux disease without esophagitis- Primary Esophageal reflux Overweight (BMI 25.0-29.9) Overweight Primary hypertension (CMS/HCC) Unspecified essential hypertension Anxiety and depression (CMS/HCC) Hiatal hernia Diaphragmatic hernia without mention of obstruction or gangrene Colon cancer screening Special screening for malignant neoplasms, colon Menopausal and female climacteric states Primary hypertension (CMS/HCC) Unspecified essential hypertension Anxiety and depression (CMS/HCC) Gastroesophageal reflux disease without esophagitis Esophageal reflux documented in this encounter [facility] HealthcareEvaluation note* Diagnosis Onset Date Resolution Status Admit Date 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 acuteJuly 2024 11:05am [facility] Work Phone: History and physical note Author Renetta Nance [facility] Date/TimeJanuary 2024 11:22am [place] [id number] Gastroenterology H&P Signed Patient: Cherelle Tuttle MR#: [id number] 44 : 1965 Acct:[id number] Age/Sex: 59 / F Adm Date: Loc: Room: Type: [facility] Attending Dr: Renetta Nance DO Copies to: DO Manuela Manzo NP-C~ Date of Service: 08/21/2024 HISTORY & PHYSICAL: Patient's history with special attention to the cardiovascular, pulmonary systems and the current problem was reviewed with the patient immediately prior to the procedure. Present medications and doses reviewed in the EMR. Allergies and pertinent laboratory tests were also re viewedat this time in the EMR. The physical examination, as below, was then performed. Indication, assessment and HPI: 59-year-old female who presents for EGD and colonoscopy for GERD and screening for colon cancer. No prior Colonoscopy. Herlast EGD was many yrs ago. She does have chronic constipation at baseline. Has tried PPI in the past. Family history of GI malignancy? No PHYSICAL EXAMINATION General appearance: cooperative, NAD Skin: No jaundice, no rash or lesions Head: NCAT Eyes: Anicteric Neck: Supple Lungs: Normal respiratory effort, no use of accessory muscles Abdomen: Soft, nondistended Neuro: No focal deficits, Ox3. REVIEW OF SYSTEMS Constitutional: Denies malaise, fevers Cardiovascular: Denies chest pain, palpitations Respiratory: Denies shortness of breath, wheezing Gastrointestinal: As per HPI Genitourinary: Denies dysuria, polyuria Musculoskeletal: Denies joint swelling, joint stiffness Neurological: Denies confusion, numbness, tingling Endocrine: Denies fatigue Written informed consent obtained from the patient. Risks (including but not limited to perforation, infection, bloating, bleeding, need for emergent surgeryand loss of life), benefits and alternatives explained and questions answered. The patient verbalized understanding. Based on history patient is an appropriate candidate for the procedure. Renetta Nance DO Present medication and doses reviewed in the EMR Documented By: Renetta Nance DO 08/21/24 1114 Signed By: <Electronically signed by Renetta Nance DO> 08/21/24 1122 [facility] Work Phone: Hospital course Narrative No data available for this section [facility] No data available for this section [facility] No data available for this section [facility]healthReason for referral (narrative)No reason for referral information availableDetwiler [facility] Work Phone: Summary Purpose Family History Relationship Condition Age at Onset Recorded Date/T olga mother Malignant neoplasm of breast Unknown Alzheimer's dementiaUnknown Advance Directives Advance Directive Response Recorded Date/ Time Advance Directives No June 1:44pm Advance Directive Response Recorded Date/ Time Advance Directives No June 2:44pm Chief Complaint and Reason for Visit Chief Complaint Admit Date SCREENING / GERD August 21, 2024 1 0:42am SCREENING / GERD August 21, 2024 1 1:15am Chief Complaint Admit Date M79.642 - Pain in left hand March 04, 025 9:18am NEW LT RING FINGER PAIN AND SWELLING NX March 04, 2025 11:05am Reason for Visit Admit Date 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 March 04, 2025 11:05am Chief Complaint Admit Date NEW LT RING FINGER PAIN AND SWELLING NX March 04, 2025 11:05am Establish, referral to cleaner and trimmer March 11, 2025 9:00am Reason for Visit Admit Date 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 March 04, 2025 11:05am Anxiety and depression March 11, 2025 9:00am HTN (hypertension) March 11, 2025 9:0 0am Additional Source Comments INFORMATION SOURCE (unrecogn ized section and content) DATE CREATED AUTHOR 02/01/2018 [facility] DATE CREATED AUTHOR AUTHOR'S ORGANIZ ATION 01/26/2022 [facility] DATE CREATED AUTHOR AUTHOR'S ORGANIZ ATION 06/24/2022 [facility] DATE CREATED AUTHOR AUTHOR'S ORGANIZ ATION 07/10/2022 [facility] DATE CREATED AUTHOR AUTHOR'S ORGANIZ ATION 06/22/2024 [facility] DATE CREATED AUTHOR AUTHOR'S ORGANIZ ATION 03/04/2025 [facility] Care Teams (unrecognized sec tion and content) Team Status: Active Member Role Status Dates Manuela Gill Primary Care Provider Active Team Status: Inactive Member Role Status Dates Manuela Gill Primary Care Provider Active Sta rt: March 04, 2025 End: March 04, 2025Justin Alec Goldman , DOAttending ProviderActiveStart: March 04, 2025 End: March 04, 2025 Team Status: Inactive Member Role Status Dates Manuela Gill Primary Care Provider Active Sta rt: March 11, 2025 End: March 11, 2025Jackie Ross APRN LABOR RELATIONS OFFICER-CAttending ProviderActive Start: March 11, 2025 End: March 11, 2025 Team Status: Active Member Role Status Dates Manuela Gill Primary Care Provider Active Team Status: Active Member Role Status Dates Manuela Gill Primary Care Provider Active Sta rt: June 22, 2024 Renetta L Ly , DOAttending ProviderActiveStart: June 22, 2024 Team Status: Inactive Member Role Status Dates Manuela Gill Primary Care Provider Active Sta rt: August 21, 2024 End: August 21atherine L Ly , DOAttending ProviderActiveStart: August 21, 2024 End: August 21, 2024 Team Status: Active Member Role Status Dates Manuela Gill Primary Care Provider Active Sta rt: August 21, 2024 Renetta L Ly , DOAttending Provider, Other ProviderActiveStart: August 21, 2024 Team MemberRelationshipSpecialtyStart DateEnd Date Praful Sands MD [address] [place] [address] PCP - GeneralFamily Medicine01/12/24 Manuela Gill NP [address] [place] [address] Nurse PractitionerNurse Practitioner03/09/23 Reason for Visit (unrecogniz ed section and content) ReasonCommentsMed Refill Goals (unrecognized section and content) Goals may be documented in a n alternate section FOR RECORDS PERTAINING TO PATIENTS WHO ARE OR HAVE BEEN ENROLLED IN A CHEMICAL DEPENDENCY/SUBSTANCEABUSE PROGRAM, SOME INFORMATION MAY BE OMITTED. This clinical summary was aggregated from multiple sources. Caution should be exercised in using it in the provision of clinical care. This summary normalizes information from multiple sources, and as a consequence, information in this document may materially change the coding, format and clinical context of patient data. In addition, data may be omitted in some cases. CLINICAL DECISIONS SHOULD BE BASED ON THE PRIMARY CLINICAL RECORDS. [facility] [employer] [facility]. provides no warranty or guarantee of the accuracy or completeness of information in this document.
--- OUTSIDE RECORDS SUMMARY | 2025-06-29 09:19 | XMS_ITS | Clinical Summary ---
Author Organization [facility] Address [address] [place] [id number] Care Team Providers Care Patient Transporter Name Role Phone Unavailable Primary Care Provider Unavailabl e Social History Tobacco UseTypesPacks/DayYears UsedDateSmoking Tobacco: Never Assessed CommentsUnknownSex and Gender InformationValueDate RecordedSex Assigned at Not on fileLegal GebMhhklx04/23/2021 7:40 PM ESTGender IdentityNot on fileSexual OrientationNot on file Plan of Treatment Not on file Insurance
--- OUTSIDE RECORDS SUMMARY | 2025-06-29 09:19 | XMS_ITS | Clinical Summary ---
Author Organization [facility] Address [id number] [place] [address] Care Team Providers Care Strategic Communications Specialist Name Role Phone No Pcp, No Pcp Primary Care Provider Unavailabl e Allergies Active AllergyReactionsCriticalityNoted DateCommentsSulfa (Sulfonamide Antibiotics)06/02/20161143Kfurprvdeiwzl17/17/2017 Medications * This document contains information received from the source organization and may not represent a complete record from that organization. MedicationSigDispense QuantityRefillsLast FilledStart DateEnd DateStatus losartan (COZAAR) 25 mg tablet Take 25 mg by mouth daily.Active estradiol (ESTRACE) 0.5 mg tablet Take 0.5 mg by mouth daily.Active omeprazole (PriLOSEC) 40 mg capsule Take 40 mg by mouth as needed.Active triamcinolone (KENALOG) 0.1 % paste Apply 1 application to teeth 2 (two) times a day.Active hydroCHLOROthiazide (HYDRODIURIL) 12.5 mg tablet Take 12.5 mg by mouth daily.Active lamoTRIgine (LaMICtal) 25 mg tablet TAKE ONE AND ONE-HALF TABLETS DAILY 135 tablet 2Active Active Problems ProblemNoted DateDiagnosed DateGeneralized anxiety xpdbgyxg41/08/2018Major depressive disorder, recurrent episode, yaknerjs93/08/2018Posttraumatic stress nibeozmh71/08/2018 Social History Tobacco UseTypesPacks/DayYears UsedDateSmoking Tobacco: Never AssessedChildcare AnswerDate PytqanpoItfwkkelcGrmbncy53/31/2019EmploymentAnswerDate Recorded FhkqeqcbtzFyjhwye29/31/2019Purpose - LifeAnswerDate RecordedPurpose and direction in jlewItewmqj17/11/2021CommentsUnknownSex and Gender InformationValueDate RecordedSex Assigned at BirthNot on fileLegal SexFemale 03/13/2015 12:11 PM EDTGender IdentityNot on fileSexual OrientationNot on file Last Filed Vital Signs Vital SignReadingTime TakenCommentsBlood Anjpqaee421/8812 1:31 PM EST Pulse--Oszsjsmmjqs27.1 ??C (98.8 ??F)06/02/2016 1:41 PM EDTRespiratory Rate-- Oxygen Saturation--Inhaled Oxygen Concentration--Rzvpsl38.1 kg (145 lb 12.8 oz) 06/02/2016 1:41 PM IKBHihxst063.1 cm (5' 5 )06/02/2016 1:41 PM EDTBody Mass Index24.261 1:41 PM EDT Plan of Treatment Health MaintenanceDue DateLast DoneCommentsDepression Shmpwmbfs66/27/1976Tobacco Caehurcey65/27/1976Adult BMI Lkdbkucoy34/27/1982DTaP,Tdap and Td Vaccines (1 - Tdap)1983Zoster (Shingles) Vaccine (1 of 2)2014Pap Smear08/30/2019 08/30/2016, 08/30/2016Influenza Ozesfbn8404/08/2025RSV ( or age 60+ yrs) (1 - 1-dose 75+ series)2039 Medical Devices Not on file Procedures Procedure NamePriorityDate/TimeAssociated DiagnosisCommentsPAP SMEARRoutine 08/30/2016 3:23 PM EST from Last 3 Months or Most Recently Relevant to Health Maintenance Results * Pap Smear (08/30/2016 3:23 PM EST)Specimen (Source)Anatomical Location / LateralityCollection Method / VolumeCollection TimeReceived Time08/30/2016 3:23 PM EST08/31/2016 3:23 PM EST Narrative COPATH - 09/04/2016 3:02 PM EST [facility] ? [address] ? [place] [address] ? Gynecologic Cytology Consultation ? Patient Name: CHERELLE TUTTLE : 1965 (Age: 51) Gender: F Taken: 08/30/2016 Reported: 09/04/2016 Physician(s): Ayse Camacho CNP ([phone]) Copy To: ?? [facility]. Rec. #: [id number] Acct: # [id number] Final Cytologic Interpretation Cervical-Endocervical ThinPrep: Satisfactory for evaluation. A transformation zone component was not noted. NEGATIVE FOR INTRAEPITHELIAL LESION OR MALIGNANCY. Comment: This specimen has been sent for HPV testing. The results are in a separate report. lrd/09/04/2016 Electronically Signed Out By ?Yoel BarriosAtrium HealthANTONELLA hudson, (ASCP) Date of Last Menstrual Period: ? (None Given) Other Clinical Conditions: Screening/Routine V72.31 Routine [id number] Source of Specimen Cervical-Endocervical ThinPrep ? Thin Prep Pap (INTERVENTIONAL TECH) Fee Code(s): ?? G0145 The Pap test is a screening test with an inherent, but low, probability of error. The Pap test is primarily effective for the diagnosis and prevention of squamous cell carcinoma. Regular screening iscritical for prevention. ThinPrep liquid-based slides, which meet the Can Runner criteria for automated screening, have been screened by the ThinPrep Imaging System (as of 04/24/07) along with an additional manual rescreening by a veterinary toxicologist and, if indicated, by a pathologist.Ayse Camacho CNP 08/31/2016 Authorizing ProviderResult TypeResult StatusDiana Tasha Camacho VIDEO COORDINATOR-ROLL UP GUIDER OPERATOR PATHOLOGY/CYTOLOGY ORDERABLESFinal ResultPerforming OrganizationAddress City/State/ZIP CodePhone Number COPATH from Last 3 Months or Most Recently Relevant to Health Maintenance Insurance MemberSubscriberPlan / Payer (Effective 2015-Present)Name:Cherelle Tuttle Relation to Subscriber:SelfName:Cherelle Tuttle Payer ID:Not on file Type:Not on file Address: [place] [id number] Care Teams Team MemberRelationshipSpecialtyStart DateEnd Date No Pcp, [place] [address] [facility]
--- OUTSIDE RECORDS SUMMARY | 2025-06-29 09:19 | XMS_ITS | Patient Health Record ---
Author Organization [facility] Address [address] [place] [address] Care Team Providers Care Lsw Name Role Phone Manuela Gill CNP Primary Care Provider Unavail able Allergies Allergen (clinical drug ingredient) Drug/Non Drug Allergy documented on EMR Reaction Allergy Type Onset Date Status Adhesive tape (uncoded)UnknownAllergyActivefluticasone / salmeterolAdvair (uncoded)UnknownAllergyActiveamlodipineAmlodipine (uncoded)UnknownAllergyActive escitalopramLexapro (uncoded)UnknownAllergyActivelisinoprilLisinopril (uncoded) UnknownAllergyActivenaproxenNaproxen (uncoded)UnknownAllergyActiveparoxetine Paxil (uncoded)UnknownAllergyActivefluoxetineProzac (uncoded)UnknownAllergy ActiveRed dye (uncoded)UnknownAllergyActiveSpices (uncoded)UnknownAllergyActive Substance with sulfonamide structure and antibacterial mechanism of action (substance)SULFA DRUGS (uncoded)Onset Date: 2007-08-15;AllergyActive Reason For Referral No Information Medications Medication SIG (Take, Route, Frequency, Duration) Notes Start Date End Date Status Triamcinolone Acetonide 0.1 % 1 applicat ion of a pea sized amount to the affected area Use Externally 1-2 times a day until symptoms improve; Duration: 90 days 3ActiveLumifyActiveTerazol 7 0.4 %1 applicatorful at bedtime Vaginal Once a day; Duration: 7 day(s)07/28/2018Not-TakinglamoTRIgineActiveTerazol 3 0.8 %1 application at bedtime Vaginal Once a day; Duration: 3 day(s)10/17/2017 Ufx-WicrpfInyorqyuz-Phmximagmwlyr Acet 1-0.5 MGtake 1 tablet by mouth once daily; Duration: 84ActiveMelatoninprnNot-TakingVitamin D3 25 MCG (1000 UT)1 capsule Orally Once a day; Duration: 30 day(s)ActiveTriamcinolone Acetonide ActiveOmeprazoleActiveNyQuilprnActiveTerconazole 0.8 %1 application at bedtime Vaginal Once a day; Duration: 3 day(s)07/19/2018Not-TakingLosartan Potassium 25 MG1 tablet Orally Once a day; Duration: 30 day(s)Not-TakingAspirin 81 MG1 tablet Orally Once a day; Duration: 30 day(s)ActiveBepreveNot-TakingIbuprofenActive DmvwrdacuAfv-JiweqoAeeiyxkHnc-RqppcklvdayLVCSNRnowxsjti 25 MG1 tablet in the morning Orally Once a day; Duration: 30 day(s)Active Social History Tobacco Use: Social History Observation Description Date Details (start date - stop date) Never Smoker NA - NA Tobacco Use/Smoking Question Answer Notes Patient is a nonsmoker Alcohol Screen (Audit-C) Question Answer Notes Did you have a drink containing alcohol in the p ast year? Yes Cpnyda1GjivlsbjemhvsuWufztyufUcqaaf History Question Answer Notes Had sex in the past 12 months (vaginal, oral, or anal)? Yes Problems Problem Type SNOMED Code ICD Code Onset Dates Problem Status W/U Status Risk Notes Problem Menopause (075030519) Menopausal and fema le climacteric states (N95.1) ActiveconfirmedProblemEmotional lability (91655321)Emotional lability (R45.86) ActiveconfirmedProblemHeadache (94630965)Headache (R51)ActiveconfirmedProblem Fatigue (40904679)Fatigue (R53.83)ActiveconfirmedProblemHypertension (42463484) Hypertension (I10)ActiveconfirmedProblemDepression (504491759)Depression (F32.9) ActiveconfirmedProblemEsophageal reflux (957559022)Esophageal reflux (K21.9) ActiveconfirmedProblemMenopause (830710775)Menopause (Z78.0)Activeconfirmed ProblemMood swings (97818204)Mood swings (F39)ActiveconfirmedProblemGynecologic examination (72036429)Encounter for gynecological examination (Z01.419)Active confirmedProblemPain in female pelvis (905633226)Female pelvic pain (R10.2) Kskrdrtsnufutus8539 less of an issue now with menopause. Seems to be fascial pain, back pain and left medial knee.ProblemRaynaud disease (108045706)Raynaud disease (I73.00)ActiveconfirmedProblemPelvic floor dysfunction (378505989)Pelvic floor dysfunction (N81.84)ActiveconfirmedProblemHuman papilloma virus screening (534098985)Screening for HPV (human papillomavirus) (Z11.51)Activeconfirmed ProblemScreening for malignant neoplasm of rectum (835485136)Screening for rectal cancer (Z12.12)ActiveconfirmedProblemFlushing (811564451)Hot flashes (R23.2)ActiveconfirmedProblemmammogram - screening (25675054)Screening mammogram, encounter for (Z12.31)Activeconfirmed Plan Of Treatment Pending Test Test Name Order Date CMP (COMPLETE METABOLIC PANEL) 8 GLU (GLUCOSE) (FBS) 11/18/2017 HEMOGLOBIN A1C (GLYCO) 11/18/2017 OCCULT BLOOD, STOOL IMMUNOASSAY(FIT) LIPID PANEL (CHOL/TRIG/HDL/LDL) 11/19/19 18 CBC WITH DIFF 11/18/2017 T4 FREE and TSH 11/18/2017 SEAN SCREEN 11/18/2017 Insurance Providers Payer Name Payer Address Payer Phone Subscriber Number Group Number Insured Name Patient Relationship to Insured Coverage Start Date Coverage End Date MMO [address] [place], [place] [id number] Cherelle Tuttle Self - patient is the insured 8 Medical (General) History Medical History History ICD Code Bartholin gland cyst N75.0 Hiatal hernia K44.9 Metrorrhagia N92.1 Pre-eclampsia O14.90 Abn menstrual cycle- heavy, crampy, irregular. Used OCP much of her life. Mother had Breast Ca. Endometriosis- Dx by [facility] x [address] PhibbsXOsteopenia -diagnosis given based on problem list but noted in 2019 the DEXA scan was actually from a different patients chart so removing the diagnosis. Will plan DEXA at 64 yo. No family history osteoporosis.back and knee injury due to fall ( now has chronic pain ) Surgical History Surgery Date(Month/Year) Tonsils and adenoids Right bunionectomyganglion cyst
--- OUTSIDE RECORDS SUMMARY | 2025-06-29 09:19 | XMS_ITS | Clinical Summary ---
Author Organization [facility] Address [address], [address] [place] [address] Care Team Providers Care Cutting Room Supervisor Name Role Phone Unavailable Primary Care Provider Unavailabl e Allergies Active AllergyReactionsCriticalityNoted DateCommentsSulfa Hjiiibkmpyi27/17/2017 Medications MedicationSigDispense QuantityRefillsLast FilledStart DateEnd DateStatus LamoTRIgine (LAMICTAL PO) Take 37.5 mg by mouth dailyActive hydrochlorothiazide (HYDRODIURIL) 25 MG tablet Take 25 mg by mouth dailyActive losartan (COZAAR) 25 MG tablet Take 25 mg by mouth dailyActive estradiol (ESTRACE) 1 MG tablet Take 1 mg by mouth dailyActive Cholecalciferol (VITAMIN D PO) Take by mouthActive ibuprofen (ADVIL;MOTRIN) 800 MG tablet Take 1 tablet by mouth every 8 hours as needed for Pain 21 tablet 03/24/2017Active Social History Tobacco UseTypesPacks/DayYears UsedDateSmoking Tobacco: NeverCommentsNo Sex and Gender InformationValueDate RecordedSex Assigned at BirthNot on file Legal QjoVpxmya94/17/2017 1:51 PM EDTGender IdentityNot on fileSexual OrientationNot on file Last Filed Vital Signs Vital SignReadingTime TakenCommentsBlood Eihulagq111/90003/24/2017 2:16 PM EDT Pgxjh09580/17/2017 1:54 PM NLTJwsefleayef36.4 ??C (99.4 ??F)03/24/2017 1:54 PM EDTRespiratory Fqcn5641 1:54 PM EDTOxygen Quvmkymtkr93%03/24/2017 2:16 PM EDTInhaled Oxygen Concentration--Weight--Height--Body Mass Index-- Plan of Treatment Not on file Insurance on file
--- OUTSIDE RECORDS SUMMARY | 2025-06-29 09:19 | XMS_ITS | Clinical Summary ---
Author Organization [facility] Address [address] [place] [address] Care Team Providers Care Investigations Chief Name Role Phone Unavailable Primary Care Provider Unavailabl e Allergies Active AllergyReactionsCriticalityNoted AftyZaryzxizQdmkqvmjoe23/22/2024 Other Reaction(s): Unknown Jdawdptywndy13/22/2024 Other Reaction(s): Unknown LvuzsitwosZnwjpqh87/06/2024Fluticasone-Dlfovgbbkp85/22/2024 Other Reaction(s): Unknown Food06/08/20084421SdmvkvfxppHswgaoufg72/13/5738Oijmyiyphw61/22/2024 Other Reaction(s): Unknown Ivniryvf79/22/2024 Other Reaction(s): Unknown Egkbercusj56/22/2024 Other Reaction(s): Unknown Red Dye #40 (Allura Red)Other01/12/2024Sulfa AntibioticsGI lgrwugtmdrj24/12/2007 Other Reaction(s): nausea, Onset Date: 2007-08-15;, Unknown Qexhgbgnstqjm09/17/2017Wound Dressing AnrqrlidWcxcg08/06/2024 Medications MedicationSigDispense QuantityRefillsLast FilledStart DateEnd DateStatus estradiol-norethindrone (ActivElla) 1-0.5 MG tablet Take 1 tablet by mouth DailyActive cholecalciferol (Vitamin D-3) 25 MCG (1000 UT) capsule Take 25 mcg by mouth DailyActive aspirin 81 MG EC tablet Take 81 mg by mouth DailyActive estradiol (Estrace) 0.1 MG/GM vaginal cream Apply a pea sized amount daily to external areas coaxmywtm21/18/2024Active hydroCHLOROthiazide (HYDRODiuril) 25 MG tablet Indications:Primary hypertensionTake 1 tablet (25 mg) by mouth Daily 90 tablet 5Active lamoTRIgine (LaMICtal) 25 MG tablet Indications:Anxiety and depressionTake 1 tablet (25 mg) by mouth in the morning and 1 tablet (25 mg) before bedtime. 180 tablet 5Active omeprazole (PriLOSEC) [address] capsule Indications:Gastroesophageal reflux disease without esophagitisTake 1 capsule (40 mg) by mouth in the morning. Take before meals. Do not crush or chew. 90 capsule 5Active Active Problems ProblemNoted DateDiagnosed DateGastroesophageal reflux disease without vwczlijrqze93/13/2024 Overview (08/21/2024): EGD on 08/21/24: normal Assessment [...] recheck Will also refer to gastro Hiatal ezavgl9406/20/2024 Assessment & Plan (06/20/2024 10:57 AM EST): Refer to GI and increase PPI Colon cancer wgpzljedn48/13/2024 Assessment & Plan (06/20/2024 10:58 AM EST): Cannot get done until next year, we will include this on the order for GI, as it can be set up whenpt determines it is best Chronic xgugdtzv44/06/2024Menopausal and female climacteric jmpzoe9801/12/2024 Assessment & Plan (06/20/2024 10:59 AM EST): Continue with Representative [employer] Raynaud's phenomenon without fjnfigqf06/06/2024Sensorineural hearing loss, /06/4474Cgfkzmnz00/06/2024rthralgia of left temporomandibular joint 01/12/2024 Assessment & Plan (01/12/2024 2:25 PM EDT): Pt will self referr to [facility] Overweight (BMI 25.0-29.9)01/12/2024nxiety and xflnthisrs49/05/2023 Assessment & Plan (06/20/2024 10:59 AM EST): No changes in meds Assessment & Plan (01/12/2024 2:24 PM EDT): No changes in meds Recommend Abelardo Najeraour counselor Also to help with her personal injury specialist, stop by local gym to see if they can help find her one Primary bsmsjcyerhge58/05/2023 Assessment & Plan (06/20/2024 10:55 AM EST): No dose changes Will continue to monitor UTD on her labs as well Refills provided Assessment & Plan (01/12/2024 2:24 PM EDT): Stable Check labs Major depressive disorder, recurrent episode, cgobutbk03/08/2018 Family History Medical HistoryRelationNameCommentsStrokeMotherRelationNameStatusCommentsFather AliveMotherDeceased Social History Tobacco UseTypesPacks/DayYears UsedDateSmoking Tobacco: NeverSmokeless Tobacco: Never Tobacco Cessation:Counseling Given: Not Answered Alcohol UseStandard Drinks/WeekCommentsNever0 (1 standard drink = 0.6 oz pure alcohol)caffeine more than 4 cupsCommentsUnknownSex and Gender InformationValueDate RecordedSex Assigned at BirthNot on fileLegal SexFemale 10/20/2022 9:50 PM EDTGender IdentityNot on fileSexual OrientationNot on file Last Filed Vital Signs Vital SignReadingTime TakenCommentsBlood Awnwzhng156/8806/20/2024 9:00 AM EST Xitnn80195/13/2024 9:00 AM CQDRdjtzwcvzus21.1 ??C (98.7 ??F)06/20/2024 9:00 AM ESTRespiratory Axuj603108/20/2023 9:00 AM ESTOxygen Ohlfpppltm169%06/20/2024 9:00 AM ESTInhaled Oxygen Concentration--Kgqmek18.7 kg (160 lb 3.2 oz)06/20/2024 9:00 AM KVHGdsskl521.1 cm (5' 5 )06/20/2024 9:00 AM ESTBody Mass Index26.6606/20/2024 9:00 AM EST Plan of Treatment Not on file Insurance
[2025-06-29 09:54] LABS: Hematocrit 40.0 % (36.0-48.0); Hemoglobin 13.6 g/dL (12.0-16.0); Immature Granulocytes Abs Auto 0.01 10^3/uL (0.00-0.03); Immature Granulocytes Pct Auto 0.2 % (0.0-0.5); Lymphocytes Absolute Auto 1.7 10^3/uL (1.2-3.8); Mean Corpuscular HGB Conc 34.0 g/dL (29.9-35.2); Mean Corpuscular Hemoglobin 31.7 pg (26.7-34.0); Mean Corpuscular Volume 93.2 fL (81.0-99.0); Platelet Count 252 10^3/uL (150-450); Red Blood Count 4.29 10^6/uL (4.20-5.40); White Blood Count 6.0 10^3/uL (4.0-11.0)
[2025-06-29 10:57] LABS: Alanine Aminotransferase 27 U/L (14-59); Albumin Globulin Ratio 1.4; Albumin Level 4.0 g/dL (3.4-5.0); Alkaline Phosphatase 44 U/L (46-116); Anion Gap 10.0; Aspartate Amino Transferase 17 U/L (15-37); Blood Urea Nitrogen 8.0 mg/dL (7.0-18.0); Calcium 8.8 mg/dL (8.5-10.1); Carbon Dioxide 30.3 mmol/L (21.0-32.0); Chloride 99 mmol/L (98-107); Cholesterol 201 mg/dL (<=200); Estimated GFR (African America >60 (>=60 mL/min/1.73m^2); Estimated GFR (Non-African Ame >60 (>=60 mL/min/1.73m^2); Globulin 2.9 g/dL; Glucose 91 mg/dL (74-106); HDL Cholesterol 59 mg/dL (40-60); Potassium 3.3 mmol/L (3.5-5.1); Sodium 136 mmol/L (136-145); Total Protein 6.9 g/dL (6.4-8.2); Triglycerides 45 mg/dL (<=150); VLDL CHOLESTEROL 9.0 mg/dL
== END 2025-06-29 09:14 | disposition home or self-care (01) ==
PROVIDERS: PCP Nurse Practitioner Family; Visit Provider Nurse Practitioner Family
DX: I10 Essential (primary) hypertension (principal)
CPT/HCPCS: 36415; 80053; 80061; 85025